=== PATIENT | male | born 1940 | race Caucasian/White ===

== ENCOUNTER 2019-02-10 14:23 | Inpatient (IN) | payer MEDICARE ==
[~2019-02-10] VITALS: Ht 177.8 cm; Wt 90.3 kg
[2019-02-10] MEDS ORDERED: ATEN50TA PO (16:10)
[2019-02-10] MEDS ORDERED: CLOP75TA69 PO (16:10)
[2019-02-10] MEDS ORDERED: LORA10TA7 PO (16:10)
[2019-02-10] MEDS ORDERED: VITA1TAB17 PO (16:10)
[2019-02-10] MEDS ORDERED: MAGN400T29 PO (16:10)
[2019-02-10] MEDS ORDERED: WARF-48 PO (16:10)
[2019-02-10] MEDS ORDERED: DOCU-143 PO (16:10)
[2019-02-10] MEDS ORDERED: OXYC-529 PO (16:10)
[2019-02-10] MEDS ORDERED: METF-397 PO (16:10)
[2019-02-10] MEDS ORDERED: LIDO1ADH41 TP (16:10)
[2019-02-10] MEDS ORDERED: METH2.5T PO (16:10)
[2019-02-10] MEDS ORDERED: METH-313 PO (16:10)
[2019-02-10] MEDS ORDERED: NF-LT10/20 PO (16:10)
[2019-02-10] MEDS ORDERED: CHOL10007 PO (16:10)
[2019-02-10] MEDS ORDERED: LEVO25TA5 PO (16:10)
[2019-02-10] MEDS ORDERED: MULT1TAB69 PO (16:10)
[2019-02-10] MEDS ORDERED: ASPI325T32 PO (16:10)
[2019-02-10] MEDS ORDERED: SENN-40 PO (16:10)
[2019-02-10] MEDS ORDERED: DIPH25TA65 PO (16:10)
[2019-02-10] MEDS ORDERED: ALLO300T2 PO (16:10)
[2019-02-10] MEDS ORDERED: ACET-2267 PO (16:10)
[2019-02-10] MEDS ORDERED: SIMV20TA3 PO (16:10)
[2019-02-10] MEDS ORDERED: HEPA500016 SC (16:10)
[2019-02-10] MEDS ORDERED: CALCIUM CARBONATE 500 MG (TUMS) TAB.CHEW PO PRN (16:15)
[2019-02-10] MEDS ORDERED: LOPERAMIDE 2 MG (IMODIUM) CAP PO PRN (16:15)
[2019-02-10] MEDS ORDERED: MELATONIN 3 MG TABLET PO PRN (16:15)
[2019-02-10] MEDS ORDERED: DOCUSATE SODIUM 100 MG (COLACE) CAP PO PRN (16:15)
[2019-02-10] MEDS ORDERED: diphenhydrAMINE 25 MG TAB (BENADRYL) PO PRN (16:15)
[2019-02-10] MEDS ORDERED: ACETAMINOPHEN 500 MG TAB (TYLENOL) PO PRN ×2 (16:15→19:15)
[2019-02-10] MEDS ORDERED: HYDROcodone/APAP 5 MG/325 MG (LORTAB) TAB PO PRN (16:15)
[2019-02-10] MEDS ORDERED: ONDANSETRON 4 MG (ZOFRAN) ORAL DISSOLVE TAB PO PRN (16:15)
--- NOTE | 2019-02-10 16:17 | NUR ---
UPDATED MED REC WITH LIST OF MEDICATIONS ORDERED AT DISCHARGE FROM . NOTE THE FOLLOWING CHANGES WERE MADE AT THAT DISCHARGE: START TAKING: ASPIRIN 325MG DAILY PLAVIX 75MG DAILY COLACE 100MG BID HEPARIN 5000UNITS/0.5ML SYRINGE 0.5ML SUBQ Q8H LIDODERM 5% PATCH APPLY 1 TO 2 PATCHES DAILY FOR 12 HOURS THEN REMOVE FOR 12 HOURS METHOCARBAMOL 750MG TID PRN OXYCODONE 5MG Q4H PRN SENOKOT S BID CONTINUE THESE MEDICATIONS WHICH HAVE BEEN CHANGED OR REFILLED: LOTREL 10-20MG HS (HOLD UNTIL CLEARED TO RESUME BY DR. WOODWARD) ATENOLOL 50MG DAILY (HOLD UNTIL CLEARED TO RESUME BY DR. WOODWARD) WARFARIN 5MG DAILY (HOLD THIS MEDICATION WHILE ON CLOPIDOGREL (PLAVIX)) THE FOLLOWING WERE REMOVED, INCLUDES THOSE DISCONTINUED THIS STAY + THOSE REMOVED FROM YOUR PRIOR MED LIST IN THE SYSTEM: LOVENOX AT A LATER TIME I WILL UPDATE THE MED REC BACK TO THE LIST OF MEDICATIONS THE PATIENT WAS TAKING PRIOR TO THE DISCHARGE FROM FOR PROPER DISCHARGE TO HOME ORDERS. Addendum: 02/11/19 at 1219 by LORE LUCAS [facility] SET THE PROFILE BACK TO THE LIST OF MEDICATIONS THE PATIENT WAS TAKING PRIOR TO ADMISSION TO . I REMOVED THE 8 NEW MEDICATIONS: ASPIRIN PLAVIX COLACE HEPARIN LIDODERM ROBAXIN OXYCODONE SENOKOT S NO DOSE OR DIRECTION CHANGES APPEAR TO HAVE BEEN MADE THE THE LOTREL, ATENOLOL, OR COUMADIN THERE WAS JUST A NOTE ADDED TO EACH. THEY REMOVED THE LOVENOX FROM HIS LIST ON DISCHARGE FROM [facility] BUT THAT LOOKS LIKE A SHORT TERM MEDICATION THAT WAS FILLED #5 FOR A 4 DAY SUPPLY 01-07-19, I DID NOT ADD IT BACK TO THE MED REC AT THIS TIME.
--- NOTE | 2019-02-10 18:45 | NUR ---
JOSE BELL admitted to room 233-1, with an admitting diagnosis of CERVICAL STENOSIS OF THE SPINE, on 02/10/19 from [facility] via PRIVATE VEHICLE, accompanied by FAMILY. JOSE BELL introduced to surroundings, call light, bed controls, phone, TV, temperature control, lights, meal times, smoking policy, visitor policy, side rail policy, bathrooms and showers. Patient Rights given to patient in the handbook. JOSE BELL verbalizes understanding that [facility] is not responsible for the loss or damage to any personal effects or valuables that are kept in the patient's possession during their hospitalization. The following Patient Care Plans were discussed with the PATIENT: Discharge Planning, ALTERED CEREBRAL TISSUE PERFUSION, IMPAIRED MOBILITY, SELF CARE DEFICIT, and KNOWLEDGE DEFICIT. JOSE BELL verbalizes understanding of Interdisciplinary Patient Education. Patient and family were informed about the Rapid Response Team and its purpose. Patient received Patient Rights Booklet, which includes Privacy Act Statement and Data Collection Information Summary.
[2019-02-10 19:11] VITALS: BP 175/80
[2019-02-10] MEDS ORDERED: METHOCARBAMOL 750 MG (ROBAXIN) TAB PO PRN (19:15)
[2019-02-10] MEDS ORDERED: NON-FORMULARY MEDICATION 1 EA EA (Vitamin B Complex 1 TAB) PO SCH (21:00)
[2019-02-10] MEDS ORDERED: SENNA W/DOCUSATE (SENOKOT S) TABLET PO SCH (21:00)
[2019-02-10] MEDS: DOCUSATE SODIUM 100 MG (COLACE) CAP PO SCH (21:20)
[2019-02-10] MEDS: MAGNESIUM OXIDE (MAG-OX)400 MG TAB PO SCH (21:20)
[2019-02-10] MEDS: SENNA W/DOCUSATE (SENOKOT S) TABLET PO SCH (21:21)
[2019-02-10] MEDS: VITAMIN D3 1,000 UNITS (CHOLECALCIFEROL) TABLET PO SCH (21:21)
[2019-02-10] MEDS: diphenhydrAMINE 25 MG TAB (BENADRYL) PO SCH (21:21)
[2019-02-10] MEDS: MULTIVIT W/MINERALS TAB (THERAGRAN M) PO SCH (21:21)
[2019-02-10] MEDS: lisINopril 20 MG (PRINIVIL) TABLET PO SCH (21:24)
[2019-02-10] MEDS: PATCH REMOVAL TP SCH (21:55)
[2019-02-11 03:46] VITALS: BP 180/84
[2019-02-11 06:16] LABS: BASOPHILS % (AUTO) 0 % (0-10); EOSINOPHILS # (AUTO) 0.2 10^3/uL (0.0-0.3); EOSINOPHILS % (AUTO) 3 % (0-10); HEMATOCRIT 36 % (40-54); HEMOGLOBIN 11.6 G/DL (13.3-17.7); LYMPHOCYTES # (AUTO) 1.1 X 10^3 (1.0-4.0); LYMPHOCYTES % (AUTO) 16 % (12-44); MEAN CORPUSCULAR HEMOGLOBIN 30 PG (25-34); MEAN CORPUSCULAR HGB CONC 32 G/DL (32-36); MEAN CORPUSCULAR VOLUME 93 FL (80-99); MEAN PLATELET VOLUME 9.6 FL (7.4-10.4); MONOCYTES # (AUTO) 0.6 X 10^3 (0.0-1.0); MONOCYTES % (AUTO) 9 % (0-12); NEUTROPHILS % (AUTO) 72 % (42-75); PLATELET COUNT 212 10^3/uL (130-400); RED CELL DISTRIBUTION WIDTH 13.9 % (10.0-14.5); WHITE BLOOD COUNT 6.9 10^3/uL (4.3-11.0)
[2019-02-11 06:38] LABS: PROTHROMBIN TIME PATIENT 13.5 SEC (12.2-14.7)
[2019-02-11 06:47] LABS: ALANINE AMINOTRANSFERASE 15 U/L (0-55); ALBUMIN 3.6 GM/DL (3.2-4.5); ALKALINE PHOSPHATASE 76 U/L (40-136); BILIRUBIN,TOTAL 0.4 MG/DL (0.1-1.0); BUN/CREATININE RATIO 14; CALCIUM 9.6 MG/DL (8.5-10.1); CARBON DIOXIDE 25 MMOL/L (21-32); CHLORIDE 104 MMOL/L (98-107); CREATININE SERUM 0.99 MG/DL (0.60-1.30); GFR ESTIMATED > 60; GLUCOSE 155 MG/DL (70-105); SODIUM 140 MMOL/L (135-145)
[2019-02-11] MEDS: metFORMIN 500 MG (GLUCOPHAGE) TAB PO SCH ×2 (06:53→17:08)
[2019-02-11] MEDS ORDERED: NON-FORMULARY MEDICATION 1 EA EA (Metformin HCl 500 MG) PO SCH (07:00)
[2019-02-11] MEDS ORDERED: ALLOPURINOL 300 MG (ZYLOPRIM) TAB PO PRN (09:00)
--- NOTE | 2019-02-11 09:54 | Physical Therapy Evaluation ---
PT Evaluation-General Medical Diagnosis Admission Date Feb 10, 2019 at 18:32 Medical Diagnosis: cervical fusion Onset Date: January 29, 2019 Therapy Diagnosis Therapy Diagnosis: impaired mobility, endurance, balance Height/Weight Height (Feet): 5 Height (Inches): 10.00 Weight (Pounds): 200 Weight (Ounces): 6.4 Precautions Precautions/Isolations: Fall Prevention, Standard Precautions Referral Physician: Jayleen Santos DO Reason for Referral: Evaluation/Treatment Medical History Pertinent Medical History: Arthritis, CVA, DM, Dementia, HTN Additional Medical History Hard of hearing. R total hip. Bilat total knees. Bilat cataract surgery. Hx DVT. DAYANNA on CPAP. Basal cell CA. Social History Home: Single Level Current Living Status: Spouse Entry Into Home: Stairs With Railing PT Steps Into Home: 3 Patient states that he usually enters the home from the garage which has a level entry. Prior/Core FIM Prior Level of Function Therapy Code Descriptions/Definitions Functional Placer Measure: 0=Not Assessed/NA 4=Minimal Assistance 1=Total Assistance 5=Supervision or Setup 2=Maximal Assistance 6=Modified Placer 3=Moderate Assistance 7=Complete Placer Therapy Quality Codes: 6 Independent with activity with or without an assistive device 5 Patient requires set up or clean up by helper. Patient completes activity by themselves 4 Supervision or touching assist (CGA). [place] provide cues , steadying assist 3 The helper provides less than half the effort to complete the activity 2 The helper provides more than half the effort to complete the activity 1 Dependent. The helper does all the effort to complete an activity 7 Patient refused to complete or attempt activity 9 The patient did not perform the activity before the current illness or injury 88 Not attempted due to Medical conditions or safety concerns Functional Abilities and Goals: Independent: Patient completed the activities by him/herself, with or without an assistive device, with no assistance from a helper. Needed Some Help: Patient needed partial assistance from another person to complete activities. Dependent: A helper completed the activities for the patient. Unknown: Not Applicable: Bed Mobility: 7 Transfers (B,C,W/C) (FIM): 7 Gait: 7 Stairs: 7 Indoor Mobility (Ambulation): Independent Stairs: Independent PT Evaluation-Current Subjective Patient in recliner pre tx, agrees to PT, has 1-2/10 pain in his neck. Patient has word finding difficulties. Pt/Family Goals to be independent at home Objective Patient Orientation: Person, Place, Situation cervical collar ROM/Strength ROM Lower Extremities WNL Strenght Lower Extremities RLE (hip flexion 4+/5, knee flexion 5/5, knee extension 5/5, dorsiflexion 5/5), LLE (hip flexion 4+/5, knee flexion 5/5, knee extension 5/5, dorsiflexion 5/5) Neuromuscular (Tone, Coordination, Reflexes) Patient states that he has had some recent visual changes. He seems to have good peripheral vision but has trouble tracking below eye level and to the right side. Sensory Vision: Hearing: Impaired Sensation Right Lower Extremit: Intact Sensation Left Lower Extremity: Intact Transfers Therapy Code Descriptions/Definitions Functional Placer Measure: 0=Not Assessed/NA 4=Minimal Assistance 1=Total Assistance 5=Supervision or Setup 2=Maximal Assistance 6=Modified Placer 3=Moderate Assistance 7=Complete Placer Therapy Quality Codes: 6 Independent with activity with or without an assistive device 5 Patient requires set up or clean up by helper. Patient completes activity by themselves 4 Supervision or touching assist (CGA). [place] provide cues , steadying assist 3 The helper provides less than half the effort to complete the activity 2 The helper provides more than half the effort to complete the activity 1 Dependent. The helper does all the effort to complete an activity 7 Patient refused to complete or attempt activity 9 The patient did not perform the activity before the current illness or injury 88 Not attempted due to Medical conditions or safety concerns Transfers (B, C, W/C) (FIM): 5 Scootin Rollin Roll Left to Right (QC): 4 Supine to/from Sit: 5 Sit to/from Stand: 5 Sit to Lying (QC): 4 Lying to Sitting/Side of Bed(Q: 4 Sit to Stand (QC): 4 Chair/Zpd-wy-Effmy Xfer(QC): 4 Car Transfer (QC): 4 Patient performs bed mobility with SBA, supine <-> sit with SBA, sit <-> stand with SBA, transfers with SBA, car transfer SBA. Patient needs occasional cues for direction and safety. Gait Does the Patient Walk?: Yes Mode of Locomotion: Walk Anticipated Mode of Locomotion: Walk Gait (FIM): 5 Walk 10 feet (QC): 4 Walk 50 ft with 2 Turns(QC): 4 Walk 150 ft (QC): 4 Walking 10ft/uneven surface-QC: 4 Distance: 400', 150' Gait Level of Assist: 5 Gait Persons Needed: 1 Gait Assistive Device: None Comments/Gait Description Patient can ambulate 400' with SBA without an assistive device (including 50' with at least 2 turns of 90 degrees but needs CGA when ambulating 10' over an uneven surface). Patient has a limp and poor foot clearance on the right side, poor heel strike. Patient scored 46/56 on the Nixon Balance Scale and it was recommended that he use a single point cane. He says he doesn't want to use it. Wheelchair Training Does the Pt Use a Wheelchair?: No Stairs Stairs (FIM): 2 #of Steps: 4 Level of Assist: 4 1 Step (curb) (QC): 4 4 Steps (QC): 4 Patient can go up and down 4 steps using 1 handrail with CGA. Cues for foot placement and safety. Balance Sitting Static: Normal Sitting Dynamic: Normal Standing Static: Good Standing Dynamic: Fair Picking up an Object (QC): 4 Assessment/Needs Patient has impaired mobility, endurance, balance. He scored a 46/56 on the BBS. Ideally he needs to use a cane for ambulation but says he doesn't want to use one. Rehab Potential: Fair PT Short Term Goals Short Term Goals Time Frame: Feb 18, 2019 Transfers (B,C,W/C) (FIM): 6 Gait (FIM): 6 Gait Distance Comment: 500' Gait Level of Assist: 6 Gait Assistive Device: Cane Single Point Wheelchair Distance: SEE PT GOALS PT Pollution Control Chemist Goals Pollution Control Chemist Goals PT Group Home Goals Time Frame: Mar 04, 2019 Transfers (B,C,W/C) (FIM): 7 Sit to Lying (QC): 6 Lying-Sitting on Side/Bed(QC): 6 Sit to Stand (QC): 6 Rollin Roll Left to Right (QC): 6 Chair/Jre-fq-Mcizz Xfer(QC): 6 Car Transfer (QC): 6 Gait (FIM): 7 Distance: 500' Walk 10 feet (QC): 6 Walk 10ft-Uneven Surface(QC): 6 Walk 50ft with 2 Turns (QC): 6 Walk 150 ft (QC): 6 Gait Level of Assist: 7 Gait Assistive Device: None Stairs (FIM): 5 # of Steps: 12 1 Step (curb) (QC): 4 4 Steps (QC): 4 12 Steps (QC): 4 Stairs Level Of Assist: 5 PT Plan Problem List Problem List: Activity Tolerance, Functional Strength, Safety, Balance, Gait, Transfer Treatment/Plan Treatment Plan: Continue Plan of Care Treatment Plan: Education, Functional Activity Robert, Functional Strength, Group Therapy, Gait, Safety, Therapeutic Exercise, Transfers Treatment Duration: Mar 04, 2019 Frequency: At least 5 of 7 days/Wk (IRF) Estimated Hrs Per Day: 1.5 hours per day Patient and/or Family Agrees t: Yes Safety Risks/Education Patient Education: Gait Training, Transfer Techniques, Steps, Reviewed Precautions, Correct Positioning, Safety Issues Teaching Recipient: Patient Teaching Methods: Demonstration, Discussion Response to Teaching: Reinforcement Needed Discharge Recommendations Plan Patient will perform bed mobility and transfer training, balance and endurance training, functional strengthening, stair training, gait training, and education, to improve functional mobility and independence at home. Therapy D/C Recommendations: Home w/ Family Support Time/GCodes Time In: 0900 Time Out: 1000 Total Billed Treatment Time: 60 Total Billed Treatment 1 visit EVM 30' FA 30' ALEX RODRIGUEZ PT Feb 11, 2019 09:54
[2019-02-11] MEDS: ATENOLOL 50 MG (TENORMIN) TAB PO SCH (09:55)
[2019-02-11] MEDS: ASPIRIN E.C. 325 MG (ECOTRIN) TABLET PO SCH (09:55)
[2019-02-11] MEDS: LEVOTHYROXINE 25 MCG (LEVOTHROID) TAB PO SCH (09:55)
[2019-02-11] MEDS: LORATADINE (CLARITIN) 10 MG TAB PO SCH (09:55)
[2019-02-11] MEDS: CLOPIDOGREL 75 MG (PLAVIX) TABLET PO SCH (09:55)
[2019-02-11] MEDS: SIMvastatin 20 MG (ZOCOR) TAB PO SCH (09:55)
[2019-02-11] MEDS: warFARin 5 MG (COUMADIN) TAB PO SCH (09:56)
[2019-02-11] MEDS: SENNA W/DOCUSATE (SENOKOT S) TABLET PO SCH ×2 (09:57→21:00)
[2019-02-11] MEDS: DOCUSATE SODIUM 100 MG (COLACE) CAP PO SCH ×2 (09:57→21:00)
[2019-02-11] MEDS: LIDOCAINE 4% (SALONPAS) PATCH TOP SCH (09:57)
--- NOTE | 2019-02-11 11:00 | PM&R H&P / Post Admit Assess ---
History of Present Illness HPI/Chief Complaint CC: Debility following CVA post op cervical spine surgery HPI: This is a 78yoWM clinic patient of Dr Marino after recently establishing his care after his doctor retired who presents to the IRF in need of recovery follow ing a CVA on 01/31/19 due to carotid artery occlusion following an uncomplicated cervical spine surgery 01/29/19 with right sided weakness, aphasia and right facial droop requiring CTA revealing left ICA near complete occlusion so carotid stent was placed 02/08/19. He has a h/o CVA in 1993 with right sided weakness since that time. He is currently much improved but impulsive and has minimal knowledge of his medical history so I gather most information from old records and will obtain some records from Dr Marino office. Currently he reports his bowels are moving well and he is urinating well. Fall risk noted so bed and chair alarm is placed. PLOF was independent but limited upper extremities due to cervical spine stenosis prior to the surgery. Source: patient Exam Limitations: no limitations Date Seen 02/11/19 Time Seen by a Provider: 08:30 Attending Physician Jayleen Santos DO PCP Raghavendra Marino DO Referring Physician Date of Admission Feb 10, 2019 at 18:32 Home Medications & Allergies Home Medications Reviewed patient Home Medication Reconciliation performed by pharmacy medication reconciliations air traffic systems technician and/or nursing. Patients Allergies have been reviewed. Allergies Allergies Coded Allergies tramadol (Verified Adverse Reaction, Unknown, Possible delirium, 02/10/19) Past Mqfecdh-Ijowks-Mdvkxb Hx Past Med/Social Hx: Reviewed Nursing Past Med/Soc Hx, Reviewed and Corrections made Patient Social History Marrital Status: Employed/Student: retired (banker) Alcohol Use: Regular Use Number of Drinks Today: 5 Alcohol Beverage of Choice: Beer Recreational Drug Use: No Smoking Status: Never a Smoker Physical Abuse Screen: No Sexual Abuse: No Recent Foreign Travel: No Contact w/other who traveled: No Recent Hopitalizations: Yes Recent Infectious Disease Expo: No Seasonal Allergies Seasonal Allergies: No Past Medical History Surgeries: Orthopedic Respiratory: Sleep Apnea Currently Using CPAP: Yes Currently Using BIPAP: No Cardiac: High Cholesterol, Hypertension, Peripheral Vascular Neurological: Stroke (01/31/19 right sided) Sexually Transmitted Disease: No HIV/AIDS: No Gastrointestinal: Gastroesophageal Reflux Musculoskeletal: Arthritis, Chronic Back Pain Are Your Blood Sugars Over 250: No Hearing Impairment: Bilateral Hearing Aide Skin/Integumentary: Psoriasis History of Blood Disorders: No Adverse Reaction to Blood Prince: No Family History Completed stroke 19 MOTHER Hypertension Review of Systems Constitutional: see HPI, dizziness, weakness EENTM: no symptoms reported Respiratory: no symptoms reported Cardiovascular: no symptoms reported Gastrointestinal: no symptoms reported Genitourinary: no symptoms reported Musculoskeletal: back pain, joint pain, muscle pain, muscle stiffness, muscle cramps, muscle twitching, muscle weakness, neck pain Skin: other (psoriasis) Psychiatric/Neurological: Depressed, Numbness, Paresthesia, Weakness All Other Systems Reviewed Negative Unless Noted: Yes Physical Exam Exam Vital Signs Vital Signs Date Time Temp Pulse Resp B/P (MAP) Pulse Ox O2 Delivery O2 Flow Rate FiO2 02/11/19 16:40 96.7 71 16 158/84 (108) 98 Room Air 02/11/19 07:58 2.00 Capillary Refill : General Appearance: No Apparent Distress, WD/WN, Chronically ill HEENT: PERRL/EOMI, Normal ENT Inspection, Pharynx Normal, Moist Mucous Membranes Neck: Full Range of Motion, Normal Inspection, Non Tender, Supple Respiratory: Chest Non Tender, Lungs Clear, Normal Breath Sounds, No Accessory Muscle Use, No Respiratory Distress Cardiovascular: Regular Rate, Rhythm, No Edema, No Gallop, No JVD, No Murmur Gastrointestinal: Normal Bowel Sounds, No Organomegaly, No Pulsatile Mass, Non Tender, Soft Back: Normal Inspection, No CVA Tenderness, No Vertebral Tenderness, Decreased Range of Motion (neck due to brace in place) Extremity: Normal Capillary Refill, Normal Inspection, Normal Range of Motion, Non Tender, No Calf Tenderness, No Pedal Edema Neurologic/Psychiatric: Alert, Oriented x3, Normal Mood/Affect, Aphasia (subtle exp aphasia), Disoriented (subtle deficit noted), Facial Droop (right), Motor Weakness (right arm, right leg 4/5) Skin: Normal Color, Warm/Dry Lymphatic: No Adenopathy Results Results/Procedures Labs Laboratory Tests 02/11/19 06:00 02/11/19 06:06 Patient resulted labs reviewed. Assessment/Plan Assessment and Plan Assess & Plan/Chief Complaint Assessment: Debility following post op CVA due to right carotid stenosis 01/31/19 s/p stent placement 02/08/19 h/o DVT's x 2 2012 and 2014 following surgery DAYANNA on CPAP Dementia Cervical spine stenosis s/p surgery HTN DM HLP Hypothyroidism Coumadin OAC Plan: Monitor labs Pain control IRF protocols Monitor closely (1) Cerebrovascular accident (CVA) due to stenosis of carotid artery (2) DAYANNA (obstructive sleep apnea) (3) Carotid stenosis, right (4) History of right common carotid artery stent placement (5) Acquired hypercoagulable state (6) Psoriasis (7) Hyperlipidemia (8) Dementia (9) Cervical stenosis of spine (10) Basal cell carcinoma (BCC) (11) Diabetes mellitus (12) Presbycusis of both ears (13) GERD (gastroesophageal reflux disease) (14) History of DVT of lower extremity (15) Gout (16) Hypertension (17) Vitamin B12 deficiency (18) Hypothyroidism (19) Immunosuppressed status (20) Warfarin anticoagulation Post Admission Physician Asses Date seen by provider: Feb 11, 2019 Time seen by provider: 08:30 Admisison Dx: (1) Cerebrovascular accident (CVA) due to stenosis of carotid artery The preadmission screen agrees with the post admission assessment that the patient is a good candidate for inpatient rehabilitation. The patient will have a comprehensive program of inpatient rehabilitation with a goal of maximizing level of functional independence prior to discharge home with family. The patient will have PT/OT ninety minutes per day, each discipline, five days a week for gait, strengthening, conditioning, balance, ADLs, any patient/family/caregiver training as necessary. Speech therapy to do cognitive assessment and treat as indicated. Rehabilitation nursing to assist with bowel, bladder, skin, wound care, medication administration, pain management. Floor Clerk to assist with discharge planning, community reentry. SCD's for DVT prophylaxis. He appears to be well motivated to participate in three hours of therapy a day. He should be able to tolerate three hours of therapy a day from a medical standpoint. He should benefit from the three hours of therapy a day. He has a reasonable discharge plan, reasonable discharge rehabilitation goals and a supportive family. He has various comorbidities that need to be closely monitored with medications and treatments adjusted on a daily basis as needed. These include: see list Barriers to discharge for this patient who had been independent prior to this are for him to be modified independent to supervision for ADLs and mobility skil ls prior to discharge home with family, so as to lessen the burden of the caregivers. Risks for this patient include: 1. Fall 2. Fracture 3. DVT 4. Pulmonary embolism 5. Wound infection 6. Skin breakdown 7. Contractures 8. Poorly controlled pain 9. Urinary retention 10. UTI 11. Respiratory infection 12. Aspiration Estimated Length of Stay: 10 days Prognosis: Rehab prognosis appears good for goal of discharge home with family modified independent to supervision for ADLs and mobility skills. JAYLEEN SANTOS DO Feb 11, 2019 11:00
--- NOTE | 2019-02-11 11:05 | ST Cognitive Linguistic Eval ---
Speech Evaluation-General Medical Diagnosis cervical fusion Onset Date: January 29, 2019 Therapy Diagnosis Therapy Diagnosis: Cognitive-communication Precautions Precautions/Isolations: Fall Prevention, Standard Precautions Referral Referring Physician: Dr. Santos Medical History Reviewed History: Yes Social History Current Living Status: Spouse Speech PLF-Current Status Prior Level of Function Patient lives at home with his . He was independent for most of his daily needs prior to his neck injury in 2017 Subjective The patient was pleasant and attentive during the evaluation process. He was noted to have difficulty with word finding. Language Eval: Auditory Comprehends Simple Yes/No Ques: Functional Indent/Objects Multiple [place]: Functional Ident/Pics in Multiple [place]: Functional Follows 1-Step Commands: Functional Follows Complex Directions: Mild Follows General Conversations: Functional Language Eval: Verbal Language Completes Spontaneous Greeting: Functional Imitates Simple Words/Phrases: Functional Word Finding: Moderate Requests Basic Needs: Mild States Basic Personal Info: Mild Expresses Complex Ideas: Moderate Objective Cognitive Domain Attention: WNL Problem Solving: Mild Visuospatial Skills: WNL Composite Severity Rating: Mild Clock Drawing Severity Rating: Mild Objective Formal/Standardized Tests [facility] Status ([facility]) Results Patient scored 23/30 which falls in the Mild Neurocognitive Disorder (MNCD) range of function. Oral Motor/Speech Production Within Functional Limits Impression The patient is a pleasant 78 year old man who was admitted to the ARU s/p cervical fusion, CVA post surgery. The patient was given the SLUMS with results placing him in the MNCD range of function. Deficits include but are not limited to memory, problem solving and word finding. Communication/Social Cognition Comprehension: 7 Expression: 5 Social Interaction: 7 Problem Solvin Memory: 5 Speech Patient Assess Expression of Ideas/Wants: Exhibits (3) Understanding Verbal Content: Understands (4) Brief Interview-Mental Status: Yes Repetition of Three Words: Three (3) Temporal Orientation: Year: Correct (3) Temporal Orientation: Month: Accurate within 5 days(2) Recall : Wear to say "Sock": Yes,after cueing (1) Recall : Color: Yes, no cue required (2) Recall : Bed: Yes,after cueing (1) Memory/Recall Ability: Current season, That he or she is in a hsp/hsp unit Speech Short Term Goals Short Term Goals Short Term Goals 1) The patient will complete memory tasks related to his daily needs at 90% or greater given minimal verbal cues. 2) The patient will complete problem solving tasks related to his daily needs at 90% or greater given minimal verbal cues. 3) The patient will complete word finding tasks related to his daily needs at 90% or greater given minimal verbal cues. Speech Intermediate Goals Sleep Tech Goals The patient will improve his cognitive skills for safety and independence in order to return home safely. Speech-Plan Patient/Family Goals Patient/Family Goals: The patient plans on returning to his home with his post rehab. Treatment Plan Speech Therapy Treatment Plan: Continue Plan of Care The patient will receive skilled ST services with focus on improving his cognitive function. Treatment Duration: Feb 26, 2019 Frequency: 5 times per week Estimated Hrs Per Day: .5 hour per day Rehab Potential: Fair Barriers to Learning: Patient has residual effects from a previous stroke 25 years ago. Patient had another stroke s/p cervical fusion surgery. Pt/Family Agrees to Plan: Yes Safety Risks/Education Teaching Recipient: Patient, Family Teaching Methods: Discussion Response to Teaching: Verbalize Understanding Education Topics Provided: Safety within his room and utilization of the call light as needed. Time Speech Therapy Time In: 10:15 Speech Therapy Time Out: 10:40 Total Billed Time: 25 Billed Treatment Time 1, SPSNDCOMP MAYANK Curtis Feb 11, 2019 11:05
--- NOTE | 2019-02-11 14:38 | Physical Therapy Daily Note ---
PT Daily Note-Current Subjective Pt reports he does not using the cane but is agreeable to try using it this session. Agreeable to PT session. Pt denies pain at this time Pain Numeric Pain Scale: 0-No Pain Appearance Pt sitting up in chair in room with daughter present at beginning of session. At end of session pt sitting up in chair with daughter present, call light, phone and bedside table within reach Mental Status Patient Orientation: Person, Place, Time, Eyes Open neck brace Transfers Therapy Code Descriptions/Definitions Functional [place] Measure: 0=Not Assessed/NA 4=Minimal Assistance 1=Total Assistance 5=Supervision or Setup 2=Maximal Assistance 6=Modified [place] 3=Moderate Assistance 7=Complete [place] Therapy Quality Codes: 6 Independent with activity with or without an assistive device 5 Patient requires set up or clean up by helper. Patient completes activity by themselves 4 Supervision or touching assist (CGA). [place] provide cues , steadying assist 3 The helper provides less than half the effort to complete the activity 2 The helper provides more than half the effort to complete the activity 1 Dependent. The helper does all the effort to complete an activity 7 Patient refused to complete or attempt activity 9 The patient did not perform the activity before the current illness or injury 88 Not attempted due to Medical conditions or safety concerns Transfers (B, C, W/C) (FIM): 4 Sit to/from Stand: 4 (CGA provided) Pt able to follow instruction for correct placement of hands during transitions Gait Training Does the Patient Walk?: Yes Gait (FIM): 4 Distance (FIM): 3=150 ft Distance: 800, 200 Gait Level of Assist: 4 (CGA provided for safety, slight unsteadiness, leobardo outside amb on uneven surfaces. No LOB) Gait Persons Needed: 1 Gait Assistive Device: Cane Single Point indoor and outdoor gait training performed with SPC and CGA with gait belt. Unsteadiness at times self corrected, No LOB. Outdoors amb on concrete, down ramp, up 3 stairs, across wood bridge, several turns. Verb instruction and education on correct and safe use of cane, pt requiring re instruction cane with opposite foot forward on each step. occasional running into furniture with cane Stair Training Stair Training: Handrails/: uses cane Stairs (FIM): 4 (CGA and verb inst) #of Steps: 3 Stairs: Pattern: Reciprocal foot only 1/2 way on step causing unsteadiness Treatments transfer, safety, gait, ramp, stairs, uneven surfaces, turns, activity tolerance, functional mobility, education in correct use and technique with cane Assessment Current Status: Good Progress PT Short Term Goals Short Term Goals Time Frame: Feb 18, 2019 Transfers (B,C,W/C) (FIM): 6 Gait (FIM): 6 Gait Distance Comment: 500' Gait Level of Assist: 6 Gait Assistive Device: Cane Single Point Wheelchair Distance: SEE PT GOALS PT [facility] Goals Occupational Health Nursing Director Goals PT [facility] Goals Time Frame: Mar 04, 2019 Transfers (B,C,W/C) (FIM): 7 Sit to Lying (QC): 6 Lying-Sitting on Side/Bed(QC): 6 Sit to Stand (QC): 6 Rollin Roll Left to Right (QC): 6 Chair/Zti-uy-Oobno Xfer(QC): 6 Car Transfer (QC): 6 Gait (FIM): 7 Distance: 500' Walk 10 feet (QC): 6 Walk 10ft-Uneven Surface(QC): 6 Walk 50ft with 2 Turns (QC): 6 Walk 150 ft (QC): 6 Gait Level of Assist: 7 Gait Assistive Device: None Stairs (FIM): 5 # of Steps: 12 1 Step (curb) (QC): 4 4 Steps (QC): 4 12 Steps (QC): 4 Stairs Level Of Assist: 5 PT Plan Treatment/Plan Treatment Plan: Continue Plan of Care Treatment Plan: Education, Functional Activity Robert, Functional Strength, Group Therapy, Gait, Safety, Therapeutic Exercise, Transfers Treatment Duration: Mar 04, 2019 Frequency: At least 5 of 7 days/Wk (IRF) Estimated Hrs Per Day: 1.5 hours per day Patient and/or Family Agrees t: Yes Safety Risks/Education Patient Education: Gait Training, Transfer Techniques, Steps, Safety Issues Teaching Recipient: Patient, Family Teaching Methods: Demonstration, Discussion Response to Teaching: Verbalize Understanding, Return Demonstration, Reinf orcement Needed Time/GCodes Time In: 1115 Time Out: 1133 Total Billed Treatment Time: 18 Total Billed Treatment 1 visit, GT x 2 units PERLA RAINES RESOLUTION MANAGER Feb 11, 2019 14:38
--- NOTE | 2019-02-11 14:51 | Occupational Therapy Eval ---
OT Evaluation-General/PLF Medical Diagnosis Admission Date Feb 10, 2019 at 18:32 Medical Diagnosis: cervical fusion Onset Date: January 29, 2019 Therapy Diagnosis Therapy Diagnosis: decr self care, decr balance, decr funct mob, weakness, decr cognition Height/Weight Height (Feet): 5 Height (Inches): 10.00 Weight (Pounds): 200 Weight (Ounces): 6.4 Precautions Precautions/Isolations: Fall Prevention, Standard Precautions Safety Interventions: Move Closer to Desk Referral Physician: Jayleen Santos DO Referral Reason: Evaluation/Treatment Medical History Pertinent Medical History: Arthritis (psoriatric), CVA (in 1991), DM, Dementia, HTN Additional Medical History Hard of hearing. R total hip. Bilat total knees. Bilat cataract surgery. Hx DVT. DAYANNA on CPAP. Basal cell CA. 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 Has bilat carotid stenosis, dx 02/03 and R carotid stent 02/08. Reviewed History: Yes Social History Home: Single Level Current Living Status: Spouse Entry Into Home: Stairs With Railing Steps Into Home: 3 ADL-Prior Level of Function Therapy Code Descriptions/Definitions Functional [place] Measure: 0=Not Assessed/NA 4=Minimal Assistance 1=Total Assistance 5=Supervision or Setup 2=Maximal Assistance 6=Modified [place] 3=Moderate Assistance 7=Complete [place] Therapy Quality Codes: 6 Independent with activity with or without an assistive device 5 Patient requires set up or clean up by helper. Patient completes activity by themselves 4 Supervision or touching assist (CGA). [place] provide cues , steadying assist 3 The helper provides less than half the effort to complete the activity 2 The helper provides more than half the effort to complete the activity 1 Dependent. The helper does all the effort to complete an activity 7 Patient refused to complete or attempt activity 9 The patient did not perform the activity before the current illness or injury 88 Not attempted due to Medical conditions or safety concerns Functional Abilities and Goals: Independent: Patient completed the activities by him/herself, with or without an assistive device, with no assistance from a helper. Needed Some Help: Patient needed partial assistance from another person to complete activities. Dependent: A helper completed the activities for the patient. Unknown: Not Applicable: ADL PLOF Comments Pt reported that he had been able to manage all of his basic ADLs, tasks around home including emptying head resident, taking out the trash and mowing using a riding mower, prior to hospitalization.He still drives. He is retired from working as a banker. Self Care: Independent Functional Cognition: Unknown DME/Equipment: Shower OT Current Status Subjective Pt seen in room, up in recliner, cervical collar in place. Pain rated 1-1.5/10 Appearance Alert, cooperative. Some word finding problems Mental Status/Objective Patient Orientation: Person, Place, Situation Current Glasses/Contacts: Yes Hearing Aids: Yes (pt reported no, med records reports yes) Dentures/Partials: No Hand Dominance: Left (Initially R handed but now uses L since old CVA) Upper Extremity ROM Grossly WFL bilat. R lags a little behind L. Upper Extremity Sensation No problems per pt report Upper Extremity Strength Grossly 4/5 bilat. No significant difference noted between r and L ADL-Treatment ADL-Current Pt declined most ADLs for today. Pt and daughter educ for him to use call light to get up, for safety. He was able to doff/don socks and slip-on shoes, walk to the bathroom to toilet with SBA and wash hands at sink with SBA. He reported that he fed himself breakfast and didn't need any help with opening packages, cutting food, etc. Vision during ADLs is somewhat limited by ROM restrictions from cervical collar. Pt left up in recliner, all needs met. Eating (FIM): 7 (No dentures) Eating (QC): 6 Grooming (FIM): 5 (SBA) On/Off Footwear (QC): 5 (supervision (put wrong shoe on)) Toileting (FIM): 5 (SBA, tall toilet, grab bar. managed clothing and hygiene) Toileting Hygiene (QC): 4 (SBA) Toilet/Commode Transfer (FIM): 5 (SBA, tall toilet, grab bar) Toilet Transfer (QC): 4 Education OT Patient Education: Purpose of tx/functional activities, Rehab process, Safety issues, Transfer techniques Teaching Recipient: Patient, Family Teaching Methods: Discussion Response to Teaching: Verbalize Understanding, Return Demonstration, Reinforcement Needed OT Short Term Goals Short Term Goals Time Frame: Feb 18, 2019 Grooming(FIM): 6 Toileting(FIM): 6 Toilet/Commode Transfer(FIM): 6 Additional Short Term Goals: 1-Demonstrate ADL Tasks, 2-Verbalize Understanding, 3-ImproveStrength/Robert 1=Demonstrate adherence to instructed precautions during ADL tasks. 2=Patient will verbalize/demonstrate understanding of assistive devices/modifications for ADL. 3=Patient will improve strength/tolerance for activity to enable patient to perform ADL's. OT Jail Goals Jail Goals Time Frame: Feb 26, 2019 Eating (FIM): 7 Eating (QC): 6 Groomin Oral Hygiene (QC): 6 Bathing(FIM): 6 Shower/Bathe Self (QC): 6 Upper Body Dressing(FIM): 6 Upper Body Dressing (QC): 6 Lower Body Dressing(FIM): 6 Lower Body Dressing (QC): 6 On/Off Footwear (QC): 6 Toileting(FIM): 6 Toileting Hygiene (QC): 6 Toilet/Commode Transfer(FIM): 6 Toilet/Commode Transfer (QC): 6 Shower Transfer(FIM): 6 Additional Goals: 1-Demonstrate ADL Tasks, 2-Verbalize Understanding, 3- ImproveStrength/Robert 1=Demonstrate adherence to instructed precautions during ADL tasks. 2=Patient will verbalize/demonstrate understanding of assistive device s/modifications for ADL. 3=Patient will improve strength/tolerance for activity to enable patient to perform ADL's. OT Education/Plan Problem List/Assessment Assessment: Decreased UE Strength, Dependent Transfers, Impaired Cognition, Impaired Funct Balance, Impaired Self-Care Skills Pt would benefit from skilled OT to increase his independence in basic slef care to allow him to safely return home after cervical fusion and stroke. His recently had back surgery and is unable to provide much assistance with his care. Discharge Recommendations Plan/Recommendations: Continue POC Treatment Plan/Plan of Care Treatment,Training & Education: Yes Patient would benefit from OT for education, treatment and training to promote independence in ADL's, mobility, safety and/or upper extremity function for ADL's. Plan of Care: ADL Retraining, Functional Mobility, Group Exercise/Act as Ind (education, exercise, activity tolerance, functional activities, socialization, memory), UE Funct Exercise/Act, UE Neuromus Re-Ed/Coord, Visual/Perceptual Retrain (if indicated) Treatment Duration: Feb 26, 2019 Frequency: At least 5 of 7 days/Wk (IRF) Estimated Hrs Per Day: 1.5 hours per day (1.25 to 1.5) Agreement: Yes Rehab Potential: Fair Time/GCodes Start Time: 10:40 Stop Time: 11:15 Total Time Billed (hr/min): 35 Billed Treatment Time visit, 20 minutes evaluation moderate intensity, 15 minutes ADL TERELL HARRELL OT Feb 11, 2019 14:50
--- NOTE | 2019-02-11 15:24 | Therapy Group Daily Note ---
Therapy Daily Group Note Patient Education Topic Other List Below (memory tips and suggestions) Exercises Sit to/from Stand (with focus on hand placement and balance with chris bag toss) Session Ratio (pt:therapist): 3:1 Goal of Session: Education on ARU Expectations, Memory Strategies Educate and inform patient of memory strategy techniques for taking home medications, keeping appointments and remembering where a car is parked. Goal Met for this Session: Yes Pt Benefit of Group: Contributions to Others, Socialization Actively participated with interaction/socilization with others Other/Notes Pt participated in group introductions and recall of favorite summer activities. Her favorite summer activity is being outdoors. He then actively engaged in providing ideas and suggestions and how to remember to take medications and when to take them. He participated in sit to stand training with cues for correct sequencing to stand up and tossed a chris bag to challenge her balance in standing. Group concluded with a game of "memory" with matching pictures requiring him to participate and actively participate. Pt was able to make one match. Pt was quiet but did seem to enjoy group. Pt returned to room after group and sat up in his chair with needs met. Start Time: 13:00 Stop Time: 14:15 Total Billed Treatment Time: 75 Total Billed Treatment 1 visit GRP 75 min TURNER REID PT Feb 11, 2019 15:24 TONIO MARTINEZ PT Feb 15, 2019 11:32
[2019-02-11 16:40] VITALS: BP 158/84
--- NOTE | 2019-02-11 19:29 | NUR ---
bedside report received from ECTOR CHUA, assume care of pt
[2019-02-11] MEDS ORDERED: METHOTREXATE 2.5 MG TAB PO NR (19:30)
[2019-02-11] MEDS: PATCH REMOVAL TP SCH (21:00)
[2019-02-11] MEDS ORDERED: amLODIPine 10 MG (NORVASC) TAB PO SCH (21:00)
[2019-02-11] MEDS ORDERED: METHOTREXATE 2.5 MG TAB PO SCH (21:00)
--- NOTE | 2019-02-11 21:00 | NUR ---
assessments & interventions completed, see assessments & interventions, scored 0 on NIH STROKE SCALE, refused Gutierrez & Linsey lowe, fsbs 154
[2019-02-11 21:20] VITALS: BP 155/73
[2019-02-11] MEDS: lisINopril 20 MG (PRINIVIL) TABLET PO SCH (21:23)
[2019-02-11] MEDS: VITAMIN D3 1,000 UNITS (CHOLECALCIFEROL) TABLET PO SCH (21:24)
[2019-02-11] MEDS: MAGNESIUM OXIDE (MAG-OX)400 MG TAB PO SCH (21:24)
[2019-02-11] MEDS: MULTIVIT W/MINERALS TAB (THERAGRAN M) PO SCH (21:24)
[2019-02-11] MEDS: diphenhydrAMINE 25 MG TAB (BENADRYL) PO SCH (21:26)
[2019-02-12 05:14] VITALS: BP 163/72
[2019-02-12] MEDS: metFORMIN 500 MG (GLUCOPHAGE) TAB PO SCH (06:13)
--- NOTE | 2019-02-12 07:22 | NUR ---
bedside report given to LAURA CHUA
[2019-02-12] MEDS: LIDOCAINE 4% (SALONPAS) PATCH TOP SCH (07:45)
[2019-02-12] MEDS ORDERED: METHOTREXATE 2.5 MG TAB PO SCH ×2 (09:00→21:00)
[2019-02-12] MEDS: DOCUSATE SODIUM 100 MG (COLACE) CAP PO SCH (09:05)
[2019-02-12] MEDS: SIMvastatin 20 MG (ZOCOR) TAB PO SCH (09:05)
[2019-02-12] MEDS: warFARin 5 MG (COUMADIN) TAB PO SCH (09:05)
[2019-02-12] MEDS: ATENOLOL 50 MG (TENORMIN) TAB PO SCH (09:05)
[2019-02-12] MEDS: LORATADINE (CLARITIN) 10 MG TAB PO SCH (09:05)
[2019-02-12] MEDS: ASPIRIN E.C. 325 MG (ECOTRIN) TABLET PO SCH (09:05)
[2019-02-12] MEDS: LEVOTHYROXINE 25 MCG (LEVOTHROID) TAB PO SCH (09:05)
[2019-02-12] MEDS: SENNA W/DOCUSATE (SENOKOT S) TABLET PO SCH (09:05)
[2019-02-12] MEDS: CLOPIDOGREL 75 MG (PLAVIX) TABLET PO SCH (09:05)
--- NOTE | 2019-02-12 09:27 | PM&R Progress Note ---
Subjective HPI/CC On Admission Date Seen by Provider: Feb 12, 2019 Time Seen by Provider: 08:45 CC: Debility following CVA post op cervical spine surgery HPI: This is a 78yoWM clinic patient of Dr Marino after recently establishing his care after his doctor retired who presents to the IRF in need of recovery following a CVA on 01/31/19 due to carotid artery occlusion following an uncomplicated cervical spine surgery 01/29/19 with right sided weakness, aphasia and right facial droop requiring CTA revealing left ICA near complete occlusion so carotid stent was placed 02/08/19. He has a h/o CVA in 1993 with right sided weakness since that time. He is currently much improved but impulsive and has minimal knowledge of his medical history so I gather most information from old records and will obtain some records from Dr Marino office. Currently he reports his bowels are moving well and he is urinating well. Fall risk noted so bed and chair alarm is placed. PLOF was independent but limited upper extremities due to cervical spine stenosis prior to the surgery. Objective Exam Vital Signs Vital Signs Date Time Temp Pulse Resp B/P (MAP) Pulse Ox O2 Delivery O2 Flow Rate FiO2 02/12/19 09:00 Room Air 02/12/19 06:23 96 02/12/19 05:14 98.2 78 16 163/72 (102) 02/11/19 21:47 2.00 Capillary Refill : Less Than 3 Seconds General Appearance: No Apparent Distress, WD/WN, Chronically ill HEENT: PERRL/EOMI, Normal ENT Inspection, Pharynx Normal, Moist Mucous Membranes Neck: Full Range of Motion, Normal Inspection, Non Tender, Supple Respiratory: Chest Non Tender, Lungs Clear, Normal Breath Sounds, No Accessory Muscle Use, No Respiratory Distress Cardiovascular: Regular Rate, Rhythm, No Edema, No Gallop, No JVD, No Murmur Gastrointestinal: Normal Bowel Sounds, No Organomegaly, No Pulsatile Mass, Non Tender, Soft Back: Normal Inspection, No CVA Tenderness, No Vertebral Tenderness, Decreased Range of Motion (neck due to brace in place) Extremity: Normal Capillary Refill, Normal Inspection, Normal Range of Motion, Non Tender, No Calf Tenderness, No Pedal Edema Neurologic/Psychiatric: Alert, Oriented x3, Normal Mood/Affect, Aphasia (subtle exp aphasia), Disoriented (subtle deficit noted), Facial Droop (right), Motor Weakness (right arm, right leg 4/5) Skin: Normal Color, Warm/Dry Lymphatic: No Adenopathy Results/Procedures Lab Patient resulted labs reviewed. FIM Transfers Therapy Code Descriptions/Definitions Functional [place] Measure: 0=Not Assessed/NA 4=Minimal Assistance 1=Total Assistance 5=Supervision or Setup 2=Maximal Assistance 6=Modified [place] 3=Moderate Assistance 7=Complete [place] Therapy Quality Codes: 6 Independent with activity with or without an assistive device 5 Patient requires set up or clean up by helper. Patient completes activity by themselves 4 Supervision or touching assist (CGA). [place] provide cues , steadying assist 3 The helper provides less than half the effort to complete the activity 2 The helper provides more than half the effort to complete the activity 1 Dependent. The helper does all the effort to complete an activity 7 Patient refused to complete or attempt activity 9 The patient did not perform the activity before the current illness or injury 88 Not attempted due to Medical conditions or safety concerns Transfers (B, C, W/C) (FIM): 4 Scootin Rollin Roll Left to Right (QC): 4 Supine to/from Sit: 5 Sit to/from Stand: 4 (CGA provided) Sit to Lying (QC): 4 Sit to Stand (QC): 4 Chair/Ipi-fl-Negmw Xfer(QC): 4 Car Transfer (QC): 4 Gait Training Does the Patient Walk?: Yes Gait (FIM): 4 Distance (FIM): 3=150 ft Distance: 800, 200 Walk 10 feet (QC): 4 Walk 50 ft with 2 Turns(QC): 4 Walk 150 ft (QC): 4 Walking 10ft/uneven surface-QC: 4 Gait Level of Assist: 4 (CGA provided for safety, slight unsteadiness, leobardo outside amb on uneven surfaces. No LOB) Gait Persons Needed: 1 Gait Assistive Device: Cane Single Point Wheelchair Training Does the Pt Use a Wheelchair?: No Distance: SEE PT GOALS Stair Training Stair Training: Handrails/: uses cane Stairs (FIM): 4 (CGA and verb inst) #of Steps: 3 1 Step (curb) (QC): 4 4 Steps (QC): 4 Stairs: Pattern: Reciprocal Level of Assist: 4 Balance Picking up an Object (QC): 4 Mental Status/Objective Comprehension: 7 Expression: 5 Social Interaction: 7 Problem Solvin Memory: 5 ADL-Treatment Feedin (No dentures) Eating (QC): 6 Groomin (SBA) On/Off Footwear (QC): 5 (supervision (put wrong shoe on)) Toiletin (SBA, tall toilet, grab bar. managed clothing and hygiene) Toileting Hygiene (QC): 4 (SBA) Toilet/Commode Transfer: 5 (SBA, tall toilet, grab bar) Toilet Transfer (QC): 4 Assessment/Plan Assessment and Plan Assess & Plan/Chief Complaint Assessment: Debility following post op CVA due to right carotid stenosis 01/31/19 s/p stent placement 02/08/19 h/o DVT's x 2 2012 and 2013 following surgery DAYANNA on CPAP Dementia Cervical spine stenosis s/p surgery HTN DM HLP Hypothyroidism Coumadin OAC Plan: Monitor labs Pain control IRF protocols Monitor closely (1) Cerebrovascular accident (CVA) due to stenosis of carotid artery CALLIE GILLILAND DO Feb 12, 2019 09:27
--- NOTE | 2019-02-12 09:28 | Individualized Plan of Care ---
Individualized Plan of Care Rehab Nursing IPOC Order Admission Date Feb 10, 2019 at 18:32 Current Orders Orders Follow-Up Appointment (02/10/19 15:34) Nursing Communication (Order) (02/10/19 15:42) Nursing Communication (Order) (02/10/19 15:47) Admission Order(Inpt,Obs,Sdc) (02/10/19 16:04) Vital Signs: Per Unit Policy ( 08,16,00 (02/10/19 16:04) Pen Or Pencil Assembly Machine Operator-Inpt Rehab Con (02/10/19 16:04) Rehab Nursing Orders-Ipoc (02/10/19 16:04) Physical Therapy Rehab Orders (02/10/19 16:04) Occupational Therapy Rehab Ord (02/10/19 16:04) Speech Therapy Rehab Orders (02/10/19 16:04) Intake & Output 06,14,22 (02/10/19 16:04) Precautions (Aru) (02/10/19 16:04) Weekly Weight (Lbs) WEEK (02/10/19 16:04) Rehab-Intensity Of Therapy (02/10/19 16:04) Cbc With Automated Diff (02/11/19 06:00) Comprehensive Metabolic Panel (02/11/19 06:00) Heart Healthy (02/11/19 Breakfast) Initiate Admission Nursing Pro .admission (02/10/19 16:04) Nursing Communication (Order) (02/10/19 16:04) Acetaminophen Tablet (Tylenol Tablet) (02/10/19 16:15) Calcium Carbonate Chew Tablet (Antacid C (02/10/19 16:15) Diphenhydramine Tablet (Benadryl Tablet) (02/10/19 16:15) Docusate Sodium Capsule (Colace Capsule) (02/10/19 16:15) Loperamide Capsule (Imodium Capsule) (02/10/19 16:15) Melatonin Tablet (Melatonin Tablet) (02/10/19 16:15) Ondansetron Oral Dissolve Tab (Zofran (02/10/19 16:15) Hydrocodone/Apap 5/325 Tablet (Lortab 5 (02/10/19 16:15) Senna S Tablet (Senokot S Tablet) (02/10/19 21:00) Aspirin Enteric Coated Tablet (Ecotrin T (02/11/19 09:00) Atenolol Tablet (Tenormin Tablet) (02/11/19 09:00) Clopidogrel Tablet (Plavix Tablet) (02/11/19 09:00) Diphenhydramine Tablet (Benadryl Tablet) (02/10/19 21:00) Docusate Sodium Capsule (Colace Capsule) (02/10/19 21:00) Levothyroxine Tablet (Synthroid Tablet) (02/11/19 09:00) Loratadine Tablet (Claritin Tablet) (02/11/19 09:00) Magnesium Oxide Tablet (Mag Ox Tablet) (02/10/19 21:00) Therapeutic Multivitamin Tab (Vitamins, (02/10/19 21:00) Oxycodone Immediate Rel Tablet (Oxyir Ta (02/10/19 17:45) Simvastatin Tablet (Zocor Tablet) (02/11/19 09:00) Warfarin Tablet (Coumadin Tablet) (02/11/19 09:00) Acetaminophen Tablet (Tylenol Tablet) (02/10/19 19:15) Cholecalciferol Capsule/Tablet (Vitamin (02/10/19 21:00) Heparin Injection (Heparin Injection) (02/10/19 22:00) (Nf) Metformin Hcl (02/11/19 07:00) Methocarbamol Tablet (Robaxin Tablet) (02/10/19 19:15) Senna S Tablet (Senokot S Tablet) (02/10/19 21:00) Protime With Inr (02/11/19 06:00) Allopurinol Tablet (Zyloprim Tablet) (02/11/19 09:00) Amlodipine Tablet (Norvasc Tablet) (02/11/19 21:00) Lidocaine 4% Patch (Salonpas 4% Patch) (02/11/19 09:00) Patch Removal (Patch Removal) (02/10/19 21:00) Lisinopril Tablet (Zestril Tablet) (02/10/19 21:00) Sequential Compression Device 08,20 (02/10/19 19:31) Dvt/Vte Risk - Notifiy Physici 08 (02/10/19 19:31) Sequential Compression Device 08,20 (02/10/19 20:27) Dvt/Vte Risk - Notifiy Physici 08 (02/10/19 20:27) Oxygen Delivery Set Up (02/10/19 21:43) Methotrexate Tablet (Methotrexate Tablet (02/14/19 21:00) Methotrexate Tablet (Methotrexate Tablet (02/15/19 09:00) Metformin Tablet (Glucophage Tablet) (02/11/19 07:00) Patient Visit (02/11/19 ) Pt Eval Moderate Complexity (02/11/19 ) Functional Activities, Ea 15 (02/11/19 ) Patient Visit (02/11/19 ) Gait Training, Ea 15 Min (02/11/19 ) Patient Visit (02/11/19 ) Therapeutic, Group (02/11/19 ) Patient Visit (02/11/19 ) Speech Sound Lang Comp (02/11/19 ) Methotrexate Tablet (Methotrexate Tablet (02/11/19 21:00) Methotrexate Tablet (Methotrexate Tablet (02/11/19 19:30) Methotrexate Tablet (Methotrexate Tablet (02/12/19 09:00) Protime With Inr (02/12/19 09:25) Enoxaparin Injection (Lovenox Injection) (02/12/19 09:30) Methotrexate Tablet (Methotrexate Tablet (02/12/19 21:00) Attending Discharge Inpt/Inobs (02/12/19 11:56) Patient Visit (02/12/19 ) Gait Training, Ea 15 Min (02/12/19 ) Exercise Therap, Ea 15 Min (02/12/19 ) Functional Activities, Ea 15 (02/12/19 ) Patient Visit (02/12/19 ) Treat. Speech/Lang/Voice (02/12/19 ) Rehab Nursing Orders: Ongoing Assess. of Cognitive Status, Ongoing Assess. of Function Status, Disease Management & Educaiton, DVT Prophylaxis, Fall Prevention, Fluid/Electrolyte/Nutrition Mgmt, Patient/Family Support Intensity of Therapy to be met Patient to be seen: Min.3h per day/5 of 7d PT IPOC Problem List: Activity Tolerance, Functional Strength, Safety, Balance, Gait, Transfer Treatment Plan: Continue Plan of Care Education, Functional Activity Robert, Functional Strength, Group Therapy, Gait, Safety, Therapeutic Exercise, Transfers Treatment Duration: Mar 04, 2019 Frequency: At least 5 of 7 days/Wk (IRF) Estimated Hrs Per Day: 1.5 hours per day OT IPOC Problems: Decreased UE Strength, Dependent Transfers, Impaired Cognition, Impaired Funct Balance, Impaired Self-Care Skills OT Treatment, Training and Edu: Yes OT Problems Pt would benefit from skilled OT to increase his independence in basic slef care to allow him to safely return home after cervical fusion and stroke. His recently had back surgery and is unable to provide much assistance with his care. Plan of Care: ADL Retraining, Functional Mobility, Group Exercise/Act as Ind (education, exercise, activity tolerance, functional activities, socialization, memory), UE Funct Exercise/Act, UE Neuromus Re-Ed/Coord, Visual/Perceptual Retrain (if indicated) Treatment Duration: Feb 26, 2019 Frequency: At least 5 of 7 days/Wk (IRF) Estimated Hrs Per Day: 1.5 hours per day (1.25 to 1.5) ST IPOC Speech Therapy Treatment Plan: Continue Plan of Care Treatment Duration: Feb 26, 2019 Frequency: 5 times per week Estimated Hrs Per Day: .5 hour per day Pen Or Pencil Assembly Machine Operator/Case Mgmt Pen Or Pencil Assembly Machine Operator/Case Managemen: Discharge Planning Dietitian/Radiologic Technologist Chief Dietitian/Radiologic Technologist Chief to monitor nutritional status and make changes and/or recommendations as needed and work with speech pathology on dietary upgrades as the occur. Physician IPOC Medical Issues being managed closely and that require the 24 hour availability of a physician: Recent stroke and on anticoagulation and antiplatelet therapy awaiting return of therapeutic INR to prevent additional stroke Brief Synthesis of Preadmission Screen, Post-Admission Evaluation, and Therapy Evaluations: Physical therapy will focus on ambulation and fall risk prevention Occupational therapy will focus on returning of independence with ADLs Medical Prognosis: Good Anticipated Length of Stay: 5 days CALLIE GILLILAND DO Feb 12, 2019 09:28
[2019-02-12] MEDS ORDERED: ENOXAPARIN 100 MG/1 ML (LOVENOX) SYR SC SCH (09:30)
--- NOTE | 2019-02-12 09:39 | Physical Therapy Daily Note ---
PT Daily Note-Current Subjective Pt reports he wants to and thinks he is ready to go home today. Agreeable to PT session. Spoke with social work, states he is going home today Pain Numeric Pain Scale: 0-No Pain Comment: states he doesn't take pain med, min increased pain with activity post cerv Appearance At beginning of session, pt sitting up in recliner, awake and alert At end of session, sitting up in recliner with phone, call light and bedside table within reach Mental Status Patient Orientation: Person, Place, Time, Eyes Open, Situation neck brace Transfers Therapy Code Descriptions/Definitions Functional Harper Measure: 0=Not Assessed/NA 4=Minimal Assistance 1=Total Assistance 5=Supervision or Setup 2=Maximal Assistance 6=Modified Harper 3=Moderate Assistance 7=Complete Harper Therapy Quality Codes: 6 Independent with activity with or without an assistive device 5 Patient requires set up or clean up by helper. Patient completes activity by themselves 4 Supervision or touching assist (CGA). [place] provide cues , steadying assist 3 The helper provides less than half the effort to complete the activity 2 The helper provides more than half the effort to complete the activity 1 Dependent. The helper does all the effort to complete an activity 7 Patient refused to complete or attempt activity 9 The patient did not perform the activity before the current illness or injury 88 Not attempted due to Medical conditions or safety concerns Transfers (B, C, W/C) (FIM): 6 Scootin (bed flat, no bedrails) Rollin (bed flat, no bedrails) Roll Left to Right (QC): 5 Supine to/from Sit: 6 (bed flat, no bedrails, good technique to protect neck) Sit to/from Stand: 6 (proper safe technique and hand placement) Sit to Lying (QC): 5 Sit to Stand (QC): 5 Chair/Kay-sp-Hwata Xfer(QC): 5 Bed to/from Chair: 6 Car Transfer (QC): 5 Gait Training Does the Patient Walk?: Yes Gait (FIM): 6 Distance (FIM): 3=150 ft Distance: >1000 x2 Walk 10 feet (QC): 5 Walk 50 ft with 2 Turns(QC): 5 Walk 150 ft (QC): 5 Walking 10ft/uneven surface-QC: 5 Gait Level of Assist: 6 Gait Persons Needed: 1 Gait Assistive Device: None Pt admits he probably won't use cane at home, no AD used during treatment session. Pt does walk with a limp, no LOB, Good step through and length. Slight path deviation at times on uneven surfaces. Stair Training Stair Training: Handrails/: 2 handrails Stairs (FIM): 5 #of Steps: 23 (23 in stairwell, 12 in gym) 1 Step (curb) (QC): 5 4 Steps (QC): 5 12 Steps (QC): 5 Stairs: Pattern: Step to Level of Assist: 5 x2 episodes verb inst given to make sure R foot is all the way on step instead of only half foot, otherwise steady Balance Picking up an Object (QC): 4 Exercises Standing: Marching, Maze, Mini squats, Sit to Stand, Side steps, Step-ups, Stepping over objects, Unilateral stance Standing Reps: 20 all standing balance activities performed without UE support NuStep Minutes: 20 NuStep Workload: 6 (seat 10, arms 10) Treatments FIM scoring, bed mobility, safety, transfers, education, gait, stairs, curb, r amp, balance, activity tolerance, functional mobility, strengthening Assessment Current Status: Good Progress PT Short Term Goals Short Term Goals Time Frame: Feb 18, 2019 Gait (FIM): 6 Gait Distance Comment: 500' Gait Level of Assist: 6 Gait Assistive Device: Cane Single Point Wheelchair Distance: SEE PT GOALS PT Detention Goals Detention Goals PT Detention Goals Time Frame: Mar 04, 2019 Transfers (B,C,W/C) (FIM): 7 Sit to Lying (QC): 6 Lying-Sitting on Side/Bed(QC): 6 Sit to Stand (QC): 6 Rollin Roll Left to Right (QC): 6 Chair/Biy-tr-Gzmos Xfer(QC): 6 Car Transfer (QC): 6 Gait (FIM): 7 Distance: 500' Walk 10 feet (QC): 6 Walk 10ft-Uneven Surface(QC): 6 Walk 50ft with 2 Turns (QC): 6 Walk 150 ft (QC): 6 Gait Level of Assist: 7 Gait Assistive Device: None Stairs (FIM): 5 # of Steps: 12 1 Step (curb) (QC): 4 4 Steps (QC): 4 12 Steps (QC): 4 Stairs Level Of Assist: 5 PT Plan Treatment/Plan Treatment Plan: Continue Plan of Care Treatment Plan: Education, Functional Activity Robert, Functional Strength, Group Therapy, Gait, Safety, Therapeutic Exercise, Transfers Treatment Duration: Mar 04, 2019 Frequency: At least 5 of 7 days/Wk (IRF) Estimated Hrs Per Day: 1.5 hours per day Patient and/or Family Agrees t: Yes Safety Risks/Education Patient Education: Gait Training, Transfer Techniques, Steps, Reviewed Precautions, Disease Process, Safety Issues Teaching Recipient: Patient Teaching Methods: Discussion Response to Teaching: Verbalize Understanding, Return Demonstration Discharge Recommendations Plan discharge home today Therapy D/C Recommendations: Home w/ Family Support, Physical Therapy Outpatient Time/GCodes Time In: 930 Time Out: 1100 Total Billed Treatment Time: 90 Total Billed Treatment 1 visit, GT x 3 units, EX x 2 units, FA x1 units PERLA RAINES PTA Feb 12, 2019 09:39
[2019-02-12 09:51] LABS: PROTHROMBIN TIME PATIENT 13.3 SEC (12.2-14.7)
--- NOTE | 2019-02-12 11:09 | NUR ---
CUT OFF SAWYER received notification from multiple staff members of patient's request to discharge home today. Patient admitted to ARU late in the day on 65; however, is performing all therapy activities with contact-guard assistance to supervision. Per spouse, [place], patient/spouse were not informed that therapies would not be received over the weekend. They were given the option to return home following discharge from [facility] versus ARU; however, they were misinformed that ARU stay could be "just a couple days" and that therapy would be daily. Patient believes he can fully manage at home rather than remain hospitalized. Patient's is retired and can provide necessary physical assistance as needed as well as any anti-coagulant injections as she previously managed this prior to hospitalization. Therapy is recommended patient utilized a single-point cane for ambulation; however, patient refuses to use. Patient spouse reports that patient has the personality of "doing what he wants". As patient is insistent on returning home today, he is agreeable to receive outpatient PT and OT services and request referral to [facility] in [place], [place]. CUT OFF SAWYER sent referral. Although patient is currently refusing use of single-point cane, CUT OFF SAWYER requested Dr. Santos to complete order for this for future desire. CUT OFF SAWYER informed patient and spouse of the order and supporting documentation if they wish to seek equipment. CUT OFF SAWYER reviewed IMM and patient choice letter for outpatient therapy, neither patient or spouse expressed concerned with discharge. Please see discharge summary for further information.
[2019-02-12] MEDS ORDERED: ACHD5005 PO (11:56)
[2019-02-12] MEDS ORDERED: OXC5T PO (11:56)
[2019-02-12] MEDS ORDERED: ENOX100D4 SC (11:56)
[2019-02-12] MEDS ORDERED: Lidocaine 4% Patch TOP (11:56)
[2019-02-12] MEDS ORDERED: SENN-20 PO (11:56)
[2019-02-12] MEDS ORDERED: CLOP75TA28 PO (11:56)
[2019-02-12] MEDS ORDERED: ASPI325T32 PO (11:56)
[2019-02-12] MEDS ORDERED: METH750T3 PO (11:56)
--- NOTE | 2019-02-12 12:01 | Discharge Summary ---
Diagnosis/Chief Complaint Date of Admission Feb 10, 2019 at 18:32 Date of Discharge Discharge Date: Feb 12, 2019 Discharge Diagnosis (1) Cerebrovascular accident (CVA) due to stenosis of carotid artery (2) DAYANNA (obstructive sleep apnea) (3) Carotid stenosis, right (4) History of right common carotid artery stent placement (5) Acquired hypercoagulable state (6) Psoriasis (7) Hyperlipidemia (8) Dementia (9) Cervical stenosis of spine (10) Basal cell carcinoma (BCC) (11) Diabetes mellitus (12) Presbycusis of both ears (13) GERD (gastroesophageal reflux disease) (14) History of DVT of lower extremity (15) Gout (16) Hypertension (17) Vitamin B12 deficiency (18) Hypothyroidism (19) Immunosuppressed status (20) Warfarin anticoagulation Discharge Summary Discharge Physical Examination Allergies: Coded Allergies: tramadol (Verified Adverse Reaction, Unknown, Possible delirium, 02/10/19) Vitals & I&Os Vital Signs Date Time Temp Pulse Resp B/P (MAP) Pulse Ox O2 Delivery O2 Flow Rate FiO2 02/12/19 09:00 Room Air 02/12/19 06:23 96 02/12/19 05:14 98.2 78 16 163/72 (102) 02/11/19 21:47 2.00 Hospital Course Was the Problem List Reviewed?: Yes Hospital course: Patient had a brief hospital course. He was admitted to inpatient rehabilitation after discharge from [facility] after suffering a stroke from carotid artery stenosis after elective cervical spine stenosis surgery. He was admitted to inpatient rehabilitation due to cognitive deficits and to return to independent ADLs and ambulation. Patient chose to be discharged and to continue his therapy at home and Lovenox injections were prescribed since his INR is 1.0 and not therapeutic on Coumadin. All medications were reviewed and patient was discharged in improved condition without inpatient rehabilitation 5 day course as originally planned. Labs (last 24 hrs) Laboratory Tests 02/10/19 20:22: Glucometer 259H 02/10/19 21:18: Glucometer 254H 02/11/19 05:52: Glucometer 154H 02/11/19 06:00: Prothrombin Time 13.5, INR Comment 1.0, Sodium Level 140, Potassium Level 4.0, Chloride Level 104, Carbon Dioxide Level 25, Anion Gap 11, Blood Urea Nitrogen 14, Creatinine 0.99, Estimat Glomerular Filtration Rate > 60, BUN/Creatinine Ratio 14, Glucose Level 155H, Calcium Level 9.6, Corrected Calcium 9.9, Total Bilirubin 0.4, Aspartate Amino Transf (AST/SGOT) 13, Alanine Aminotransferase (ALT/SGPT) 15, Alkaline Phosphatase 76, Total Protein 7.0, Albumin 3.6 02/11/19 06:06: White Blood Count 6.9, Red Blood Count 3.91L, Hemoglobin 11.6L, Hematocrit 36L, Mean Corpuscular Volume 93, Mean Corpuscular Hemoglobin 30, Mean Corpuscular Hemoglobin Concent 32, Red Cell Distribution Width 13.9, Platelet Count 212, Mean Platelet Volume 9.6, Neutrophils (%) (Auto) 72, Lymphocytes (%) (Auto) 16, Monocytes (%) (Auto) 9, Eosinophils (%) (Auto) 3, Basophils (%) (Auto) 0, Neutrophils # (Auto) 5.0, Lymphocytes # (Auto) 1.1, Monocytes # (Auto) 0.6, Eosinophils # (Auto) 0.2, Basophils # (Auto) 0.0 02/12/19 05:59: Glucometer 137H 02/12/19 09:35: Prothrombin Time 13.3, INR Comment 1.0 Pending Labs Laboratory Tests 02/10/19 20:22: Glucometer 259 02/10/19 21:18: Glucometer 254 02/11/19 05:52: Glucometer 154 02/11/19 06:00: Prothrombin Time 13.5, INR Comment 1.0, Sodium Level 140, Potassium Level 4.0, Chloride Level 104, Carbon Dioxide Level 25, Anion Gap 11, Blood Urea Nitrogen 14, Creatinine 0.99, Estimat Glomerular Filtration Rate > 60, BUN/Creatinine Ratio 14, Glucose Level 155, Calcium Level 9.6, Corrected Calcium 9.9, Total Matias irubin 0.4, Aspartate Amino Transf (AST/SGOT) 13, Alanine Aminotransferase (ALT/SGPT) 15, Alkaline Phosphatase 76, Total Protein 7.0, Albumin 3.6 02/11/19 06:06: White Blood Count 6.9, Red Blood Count 3.91, Hemoglobin 11.6, Hematocrit 36, Mean Corpuscular Volume 93, Mean Corpuscular Hemoglobin 30, Mean Corpuscular Hemoglobin Concent 32, Red Cell Distribution Width 13.9, Platelet Count 212, Mean Platelet Volume 9.6, Neutrophils (%) (Auto) 72, Lymphocytes (%) (Auto) 16, Monocytes (%) (Auto) 9, Eosinophils (%) (Auto) 3, Basophils (%) (Auto) 0, Neutrophils # (Auto) 5.0, Lymphocytes # (Auto) 1.1, Monocytes # (Auto) 0.6, Eosinophils # (Auto) 0.2, Basophils # (Auto) 0.0 02/12/19 05:59: Glucometer 137 02/12/19 09:35: Prothrombin Time 13.3, INR Comment 1.0 Discharge Home Medications: Active Scripts Active [Lidocaine 4% Patch] 1 EA Patch 1 Ea TOP DAILY Senna-Time S Tablet (Sennosides/Docusate Sodium) 1 Each Tablet 2 Ea PO BID Oxyir Tablet (Oxycodone HCl) 5 Mg Tab 5 Mg PO Q4H PRN Hydrocodone/Acetaminophen 5/325mg Tablet (Acetaminophen/Hydrocodone Bitart) 1 Tab Tab 1 Tab PO Q4H PRN Aspirin EC (Aspirin) 325 Mg Tablet.dr 325 Mg PO DAILY Clopidogrel (Clopidogrel Bisulfate) 75 Mg Tablet 75 Mg PO DAILY Enoxaparin Sodium 100 Mg/1 Ml Syringe 90 Mg SC Q12H Methocarbamol 750 Mg Tablet 750 Mg PO TID PRN Reported Multivitamins (Multivitamin) 1 Each Tablet 1 Tab PO HS Vitamin B Complex 1 Each Tablet 1 Tab PO HS Simvastatin 20 Mg Tablet 20 Mg PO DAILY Metformin HCl 500 Mg Tablet 500 Mg PO BID WITH MEALS Methotrexate (Methotrexate Sodium) 2.5 Mg Tablet 5 Mg PO UD TAKES 2 (2.5MG) TABLETS ON FRIDAY EVENING, FRIDAY MORNING, AND FRIDAY EVENING (TOTAL OF 6 TABLETS) Magox 400 (Magnesium Oxide) 400 Mg Tablet 400 Mg PO HS Loratadine 10 Mg Tablet 10 Mg PO DAILY Levothyroxine Sodium 25 Mcg Tablet 25 Mcg PO DAILY Benadryl Allergy (Diphenhydramine HCl) 25 Mg Tablet 25 Mg PO HS Vitamin D3 (Cholecalciferol (Vitamin D3)) 1,000 Unit Capsule 1,000 Unit PO HS Allopurinol 300 Mg Tablet 300 Mg PO DAILY PRN Tylenol Extra Strength (Acetaminophen) 500 Mg Tablet 1,000 Mg PO Q6H PRN Warfarin Sodium 5 Mg Tablet 5 Mg PO DAILY Atenolol 50 Mg Tablet 50 Mg PO DAILY Lotrel 10-20 mg Capsule (Amlodipine/Benazepril) 1 Cap Cap 1 Cap PO HS Instructions to patient/family Please see electronic discharge instructions given to patient. Diagnosis/Problems Diagnosis/Problems (1) Cerebrovascular accident (CVA) due to stenosis of carotid artery Clinical Quality Measures DVT/VTE Risk/Contraindication: Risk Factor Score Per Nursin RFS Level Per Nursing on Admit: 4+=Very High CALLIE GILLILAND DO Feb 12, 2019 12:01
--- NOTE | 2019-02-12 13:00 | Occupational Ther Daily Note ---
OT Current Status-Daily Note Subjective Pt seen in room, up in recliner, agreeable to OT. No pain mentioned Appearance Alert, cooperative Mental Status/Objective Therapy Code Descriptions/Definitions Functional [place] Measure: 0=Not Assessed/NA 4=Minimal Assistance 1=Total Assistance 5=Supervision or Setup 2=Maximal Assistance 6=Modified [place] 3=Moderate Assistance 7=Complete [place] ADL-Treatment Pt got up from recliner without help and walked to bathroom, using cane, with no LOB. Transferred into shower and on/off shower bench with SBA. Stood to step out of shoes, using grab bar for safety, no LOB. Doffed clothing without assistance. Washed and dried all parts, setup, SBA when standing in shower. Shower bench, grab bar, hand held shower. Donned boxers and shorts with SBA for standing. Donned shirt with setup and able to manage buttons, although with extra time. Donned socks and shoes with setup. Also stood at sink to groom mod I. Able to feed himself mod I, taking extra time. Pt left up in recliner, all needs met. Wants to go home today. Therapy Code Descriptions/Definitions Functional [place] Measure: 0=Not Assessed/NA 4=Minimal Assistance 1=Total Assistance 5=Supervision or Setup 2=Maximal Assistance 6=Modified [place] 3=Moderate Assistance 7=Complete [place] Therapy Quality Codes: 6 Independent with activity with or without an assistive device 5 Patient requires set up or clean up by helper. Patient completes activity by themselves 4 Supervision or touching assist (CGA). [place] provide cues , steadying assist 3 The helper provides less than half the effort to complete the activity 2 The helper provides more than half the effort to complete the activity 1 Dependent. The helper does all the effort to complete an activity 7 Patient refused to complete or attempt activity 9 The patient did not perform the activity before the current illness or injury 88 Not attempted due to Medical conditions or safety concerns Eating (FIM): 6 (extra time) Eating (QC): 6 Grooming (FIM): 6 (Stood at sink to brush teeth, mod I) Oral Hygiene (QC): 6 Bathing (FIM): 5 (SBA for standing to wash/dry bottom. Setup. Shower bench, grab bar, hand held shower) Shower/Bathe Self (QC): 4 (SBA) Upper Body (FIM): 5 (Extra time to complete buttons, but able to do so. setup) Upper Body Dressing (QC): 5 (setup) Lower Body Dressing (FIM): 5 (SBA pants, undewear. Socks, shoes, setup) Lower Body Dressing (QC): 4 (SBA for standing) On/Off Footwear (QC): 5 (setup) Shower Transfer(FIM): 5 (SBA getting in and out of shower, on and off shower bench) Education OT Patient Education: Modified ADL techniques, Progress toward Goal/Update tx plan, Purpose of tx/functional activities, Safety issues Teaching Recipient: Patient Teaching Methods: Discussion Response to Teaching: Verbalize Understanding, Return Demonstration OT Short Term Goals Short Term Goals Time Frame: Feb 18, 2019 Grooming(FIM): 6 Toileting(FIM): 6 Toilet/Commode Transfer(FIM): 6 Additional Short Term Goals: 1-Demonstrate ADL Tasks, 2-Verbalize Understanding, 3-ImproveStrength/Robert 1=Demonstrate adherence to instructed precautions during ADL tasks. 2=Patient will verbalize/demonstrate understanding of assistive devices/modifications for ADL. 3=Patient will improve strength/tolerance for activity to enable patient to perform ADL's. OT [facility] Goals [facility] Goals Time Frame: Feb 26, 2019 Eating (FIM): 7 Eating (QC): 6 Groomin Oral Hygiene (QC): 6 Bathing(FIM): 6 Shower/Bathe Self (QC): 6 Upper Body Dressing(FIM): 6 Upper Body Dressing (QC): 6 Lower Body Dressing(FIM): 6 Lower Body Dressing (QC): 6 On/Off Footwear (QC): 6 Toileting(FIM): 6 Toileting Hygiene (QC): 6 Toilet/Commode Transfer(FIM): 6 Toilet/Commode Transfer (QC): 6 Shower Transfer(FIM): 6 Additional Goals: 1-Demonstrate ADL Tasks, 2-Verbalize Understanding, 3- ImproveStrength/Robert 1=Demonstrate adherence to instructed precautions during ADL tasks. 2=Patient will verbalize/demonstrate understanding of assistive device s/modifications for ADL. 3=Patient will improve strength/tolerance for activity to enable patient to perform ADL's. 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 His recently had back surgery and is unable to provide much assistance with his care. Discharge Recommendations Plan/Recommendations: Continue POC Treatment Plan/Plan of Care Patient would benefit from OT for education, treatment and training to promote independence in ADL's, mobility, safety and/or upper extremity function for ADL's. Plan of Care: ADL Retraining, Functional Mobility, Group Exercise/Act as Ind (education, exercise, activity tolerance, functional activities, socialization, memory), UE Funct Exercise/Act, UE Neuromus Re-Ed/Coord, Visual/Perceptual Retrain (if indicated) Treatment Duration: Feb 26, 2019 Frequency: At least 5 of 7 days/Wk (IRF) Estimated Hrs Per Day: 1.5 hours per day (1.25 to 1.5) Agreement: Yes Rehab Potential: Fair Time/GCodes Start Time: 08:30 Stop Time: 09:30 Total Time Billed (hr/min): 60 Billed Treatment Time visit, 60 minutes ADL TERELL HARRELL OT Feb 12, 2019 13:00
--- NOTE | 2019-02-12 13:19 | Therapy Team Discharge Summary ---
Therapy Discharge Summary Discharge Recommendations Date of Discharge Therapy D/C Recommendations: Home w/ Family Support, Physical Therapy Outpatient Physical Therapy Patient came to rehab following a cervical fusion and CVA. Upon evaluation patient performed bed mobility with SBA, supine <-> sit with SBA, sit <-> stand with SBA, transfers with SBA, car transfer SBA, ambulated 400' with SBA without an assistive device (including 50' with at least 2 turns of 90 degrees but needs CGA when ambulating 10' over an uneven surface), and went up and down 4 steps using 1 handrail with CGA. Patient has been performing bed mobility and transfer training, balance and endurance training, functional strengthening, stair training, gait training, and education. Patient has made good progress and has met all of his fpc goals. Now, patient is independent with bed mobility and transfers, car transfer mod I, ambulated over 1000' without an assistive device with mod I (including 50' with at least 2 turns of 90 degrees and 10' over an uneven surface), and can go up and down 23 steps using 2 handrails with SBA. Patient is discharging from this facility today and will be discharged from PT at this time. Occupational Therapy Decreased UE Strength, Dependent Transfers, Impaired Cognition, Impaired Funct Balance, Impaired Self-Care Skills PT Housekeeper Home Goals [facility] Goals PT [facility] Goals Time Frame: Mar 04, 2019 Transfers (B,C,W/C) (FIM): 7 Roll Left to Right (QC): 6 Sit to Lying (QC): 6 Lying-Sitting on Side/Bed(QC): 6 Sit to Stand (QC): 6 Chair/Hwt-nc-Fmzuu Xfer(QC): 6 Car Transfer (QC): 6 Gait (FIM): 7 Distance: 500' Walk 10 feet (QC): 6 Walk 10ft-Uneven Surface(QC): 6 Walk 50ft with 2 Turns (QC): 6 Walk 150 ft (QC): 6 Gait Level of Assist: 7 Gait Assistive Device: None Stairs (FIM): 5 # of Steps: 12 1 Step (curb) (QC): 4 4 Steps (QC): 4 12 Steps (QC): 4 Stairs Level Of Assist: 5 OT [facility] Goals Housekeeper Home Goals Time Frame: Feb 26, 2019 Eating (FIM): 7 Eating (QC): 6 Oral Hygiene (QC): 6 Grooming(FIM): 6 Bathing(FIM): 6 Shower/Bathe Self (QC): 6 Upper Body Dressing(FIM): 6 Upper Body Dressing (QC): 6 Lower Body Dressing(FIM): 6 Lower Body Dressing (QC): 6 On/Off Footwear (QC): 6 Toileting(FIM): 6 Toileting Hygiene (QC): 6 Toilet/Commode Transfer(FIM): 6 Toilet/Commode Transfer (QC): 6 Shower Transfer(FIM): 6 Additional Goals: 1-Demonstrate ADL Tasks, 2-Verbalize Understanding, 3-I mproveStrength/Robert 1=Demonstrate adherence to instructed precautions during ADL tasks. 2=Patient will verbalize/demonstrate understanding of assistive devices/modifications for ADL. 3=Patient will improve strength/tolerance for activity to enable patient to perform ADL's. Speech Housekeeper Home Goals [facility] Goals The patient will improve his cognitive skills for safety and independence in order to return home safely. ALEX RODRIGUEZ PT Feb 12, 2019 13:19
--- NOTE | 2019-02-12 14:17 | Occupational Ther Daily Note ---
OT Current Status-Daily Note Subjective Pt seen in room, up in recliner, agreeable to OT. Going home today Appearance Alert, cooperative Mental Status/Objective Therapy Code Descriptions/Definitions Functional [place] Measure: 0=Not Assessed/NA 4=Minimal Assistance 1=Total Assistance 5=Supervision or Setup 2=Maximal Assistance 6=Modified [place] 3=Moderate Assistance 7=Complete [place] ADL-Treatment Pt walked to bathroom and toileted with mod I, getting on and off toilet, managing clothing and hygiene without help or LOB. Tall toilet, grab bar, cane. Walked back to recliner, all needs met. Therapy Code Descriptions/Definitions Functional [place] Measure: 0=Not Assessed/NA 4=Minimal Assistance 1=Total Assistance 5=Supervision or Setup 2=Maximal Assistance 6=Modified [place] 3=Moderate Assistance 7=Complete [place] Therapy Quality Codes: 6 Independent with activity with or without an assistive device 5 Patient requires set up or clean up by helper. Patient completes activity by themselves 4 Supervision or touching assist (CGA). [place] provide cues , steadying ass ist 3 The helper provides less than half the effort to complete the activity 2 The helper provides more than half the effort to complete the activity 1 Dependent. The helper does all the effort to complete an activity 7 Patient refused to complete or attempt activity 9 The patient did not perform the activity before the current illness or injury 88 Not attempted due to Medical conditions or safety concerns Toileting (FIM): 6 (Managed clothing and hygiene, tall toilet, grab bar, mod I) Toileting Hygiene (QC): 6 Toilet/Commode Transfer (FIM): 6 (On/off tall toilet, using grab bar) Education OT Patient Education: Progress toward Goal/Update tx plan Teaching Recipient: Patient Teaching Methods: Discussion Response to Teaching: Verbalize Understanding OT Short Term Goals Short Term Goals Time Frame: Feb 18, 2019 Grooming(FIM): 6 Toileting(FIM): 6 Toilet/Commode Transfer(FIM): 6 Additional Short Term Goals: 1-Demonstrate ADL Tasks, 2-Verbalize Understand ing, 3-ImproveStrength/Robert 1=Demonstrate adherence to instructed precautions during ADL tasks. 2=Patient will verbalize/demonstrate understanding of assistive devices/modifications for ADL. 3=Patient will improve strength/tolerance for activity to enable patient to perform ADL's. OT Nursing Home Goals Mine Superintendent Goals Time Frame: Feb 26, 2019 Eating (FIM): 7 (met) Eating (QC): 6 (met) Groomin (met) Oral Hygiene (QC): 6 Bathing(FIM): 6 (not met) Shower/Bathe Self (QC): 6 (not met) Upper Body Dressing(FIM): 6 (not met) Upper Body Dressing (QC): 6 (not met) Lower Body Dressing(FIM): 6 (not met) Lower Body Dressing (QC): 6 (not met) On/Off Footwear (QC): 6 (not met) Toileting(FIM): 6 (met) Toileting Hygiene (QC): 6 (met) Toilet/Commode Transfer(FIM): 6 (met) Toilet/Commode Transfer (QC): 6 (met) Shower Transfer(FIM): 6 (not met) Additional Goals: 1-Demonstrate ADL Tasks, 2-Verbalize Understanding, 3- ImproveStrength/Robert 1=Demonstrate adherence to instructed precautions during ADL tasks. 2=Patient will verbalize/demonstrate understanding of assistive devices/modifications for ADL. 3=Patient will improve strength/tolerance for activity to enable patient to perform ADL's. 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 His recently had back surgery and is unable to provide much assistance with his ca re. Discharge Recommendations Plan/Recommendations: Discharge/Goals Met (see tx plan for goals met) Treatment Plan/Plan of Care Patient would benefit from OT for education, treatment and training to promote independence in ADL's, mobility, safety and/or upper extremity function for ADL's. Plan of Care: ADL Retraining, Functional Mobility, Group Exercise/Act as Ind (education, exercise, activity tolerance, functional activities, socialization, memory), UE Funct Exercise/Act, UE Neuromus Re-Ed/Coord, Visual/Perceptual Retrain (if indicated) Treatment Duration: Feb 26, 2019 Frequency: At least 5 of 7 days/Wk (IRF) Estimated Hrs Per Day: 1.5 hours per day (1.25 to 1.5) Agreement: Yes Rehab Potential: Fair Time/GCodes Start Time: 13:30 Stop Time: 13:40 Total Time Billed (hr/min): 10 Billed Treatment Time visit, 10 minutes ADL TERELL HARRELL OT Feb 12, 2019 14:17
--- NOTE | 2019-02-12 14:20 | Therapy Team Discharge Summary ---
Therapy Discharge Summary Discharge Recommendations Date of Discharge Therapy D/C Recommendations: Home w/ Family Support, Physical Therapy Outpatient Occupational Therapy Pt was seen for skilled OT to increase his independence in basic self care to allow him to safely return home. By discharge, he was able to feed himself groom and toilet mod I, and bathe and dress with setup and SBA. Equipment used included shower bench, grab bars, hand held shower, cane. See tx plan for goals met. DC to home with help from his . DC OT Decreased UE Strength, Dependent Transfers, Impaired Cognition, Impaired Funct Balance, Impaired Self-Care Skills PT Half-Way Goals Director Of Enrollment Goals PT Half-Way Goals Time Frame: Mar 04, 2019 Transfers (B,C,W/C) (FIM): 7 Roll Left to Right (QC): 6 Sit to Lying (QC): 6 Lying-Sitting on Side/Bed(QC): 6 Sit to Stand (QC): 6 Chair/Mth-qq-Xsgil Xfer(QC): 6 Car Transfer (QC): 6 Gait (FIM): 7 Distance: 500' Walk 10 feet (QC): 6 Walk 10ft-Uneven Surface(QC): 6 Walk 50ft with 2 Turns (QC): 6 Walk 150 ft (QC): 6 Gait Level of Assist: 7 Gait Assistive Device: None Stairs (FIM): 5 # of Steps: 12 1 Step (curb) (QC): 4 4 Steps (QC): 4 12 Steps (QC): 4 Stairs Level Of Assist: 5 OT Half-Way Goals Half-Way Goals Time Frame: Feb 26, 2019 Eating (FIM): 7 (met) Eating (QC): 6 (met) Oral Hygiene (QC): 6 Grooming(FIM): 6 (met) Bathing(FIM): 6 (not met) Shower/Bathe Self (QC): 6 (not met) Upper Body Dressing(FIM): 6 (not met) Upper Body Dressing (QC): 6 (not met) Lower Body Dressing(FIM): 6 (not met) Lower Body Dressing (QC): 6 (not met) On/Off Footwear (QC): 6 (not met) Toileting(FIM): 6 (met) Toileting Hygiene (QC): 6 (met) Toilet/Commode Transfer(FIM): 6 (met) Toilet/Commode Transfer (QC): 6 (met) Shower Transfer(FIM): 6 (not met) Additional Goals: 1-Demonstrate ADL Tasks, 2-Verbalize Understanding, 3- ImproveStrength/Robert 1=Demonstrate adherence to instructed precautions during ADL tasks. 2=Patient will verbalize/demonstrate understanding of assistive devices/modifications for ADL. 3=Patient will improve strength/tolerance for activity to enable patient to perform ADL's. Speech Director Of Enrollment Goals Half-Way Goals The patient will improve his cognitive skills for safety and independence in order to return home safely. TERELL HARRELL OT Feb 12, 2019 14:20
--- NOTE | 2019-02-12 14:35 | Speech Therapy Daily Note ---
Speech Daily Progress Note Subjective Date Seen by Provider: Feb 12, 2019 Time Seen by Provider: 00:15 The patient is happy to be returning home today. Objective The patient completed memory tasks related to his safety at home with 80% accuracy given minimal verbal cues. Assessment Assessment Current Status: Fair Progress Treatment Plan Discontinue ST Communication Comprehension: 7 Expression: 6 Social Cognition Social Interaction: 7 Problem Solvin Memory: 5 Speech Short Term Goals Short Term Goals Short Term Goals 1) The patient will complete memory tasks related to his daily needs at 90% or greater given minimal verbal cues. Met at 80% 2) The patient will complete problem solving tasks related to his daily needs at 90% or greater given minimal verbal cues. Met at 80% 3) The patient will complete word finding tasks related to his daily needs at 90% or greater given minimal verbal cues. Net at 80% Speech Industrial Laborer Goals Industrial Laborer Goals The patient will improve his cognitive skills for safety and independence in order to return home safely. Met at 80% Speech-Plan Patient/Family Goals Patient/Family Goals: The patient is discharging to home today with his family. Treatment Plan Speech Therapy Treatment Plan: Discontinue ST The patient wanted to go home. 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 Time Speech Therapy Time In: 13:00 Speech Therapy Time Out: 13:15 Total Billed Time: 15 Billed Treatment Time 1KEILA BETHANIA ST Feb 12, 2019 14:35
--- NOTE | 2019-02-12 14:46 | Therapy Team Discharge Summary ---
Therapy Discharge Summary Discharge Recommendations Date of Discharge Therapy D/C Recommendations: Home w/ Family Support, Physical Therapy Outpatient Occupational Therapy Decreased UE Strength, Dependent Transfers, Impaired Cognition, Impaired Funct Balance, Impaired Self-Care Skills Speech-Language Pathology The patient was admitted yesterday s/p cervical surgery and a new CVA directly after the surgery. The patient was evaluated with the SLUMS which he scored MNCD functional level. The patient decided he wanted to return home today. He is being discharged from ARU as well as ST. PT [facility] Goals Orthopedic Designer Goals PT [facility] Goals Time Frame: Feb 12, 2019 Transfers (B,C,W/C) (FIM): 7 Roll Left to Right (QC): 6 Sit to Lying (QC): 6 Lying-Sitting on Side/Bed(QC): 6 Sit to Stand (QC): 6 Chair/Krn-zm-Oumux Xfer(QC): 6 Car Transfer (QC): 6 Gait (FIM): 7 Distance: 500' Walk 10 feet (QC): 6 Walk 10ft-Uneven Surface(QC): 6 Walk 50ft with 2 Turns (QC): 6 Walk 150 ft (QC): 6 Gait Level of Assist: 7 Gait Assistive Device: None Stairs (FIM): 5 # of Steps: 12 1 Step (curb) (QC): 4 4 Steps (QC): 4 12 Steps (QC): 4 Stairs Level Of Assist: 5 OT Orthopedic Designer Goals [facility] Goals Time Frame: Feb 26, 2019 Eating (FIM): 7 (met) Eating (QC): 6 (met) Oral Hygiene (QC): 6 Grooming(FIM): 6 (met) Bathing(FIM): 6 (not met) Shower/Bathe Self (QC): 6 (not met) Upper Body Dressing(FIM): 6 (not met) Upper Body Dressing (QC): 6 (not met) Lower Body Dressing(FIM): 6 (not met) Lower Body Dressing (QC): 6 (not met) On/Off Footwear (QC): 6 (not met) Toileting(FIM): 6 (met) Toileting Hygiene (QC): 6 (met) Toilet/Commode Transfer(FIM): 6 (met) Toilet/Commode Transfer (QC): 6 (met) Shower Transfer(FIM): 6 (not met) Additional Goals: 1-Demonstrate ADL Tasks, 2-Verbalize Understanding, 3- ImproveStrength/Robert 1=Demonstrate adherence to instructed precautions during ADL tasks. 2=Patient will verbalize/demonstrate understanding of assistive devices/modifications for ADL. 3=Patient will improve strength/tolerance for activity to enable patient to perform ADL's. Speech Orthopedic Designer Goals [facility] Goals The patient will improve his cognitive skills for safety and independence in order to return home safely. Met at 80% MAYANK JIMENEZ Feb 12, 2019 14:46
[2019-02-14] MEDS ORDERED: METHOTREXATE 2.5 MG TAB PO SCH (21:00)
[2019-02-15] MEDS ORDERED: METHOTREXATE 2.5 MG TAB PO SCH (09:00)
== END 2019-02-12 15:00 | disposition home or self-care (01) | DRG 57 ==
PROVIDERS: ADMIT Internal Medicine; ATTEND Internal Medicine
DX: I69.351 Hemiplegia and hemiparesis following cerebral infarction affecting right dominant side (principal); I69.320 Aphasia following cerebral infarction; I69.318 Other symptoms and signs involving cognitive functions following cerebral infarction; I69.818 Other symptoms and signs involving cognitive functions following other cerebrovascular disease; I10 Essential (primary) hypertension; E11.51 Type 2 diabetes mellitus with diabetic peripheral angiopathy without gangrene; E03.9 Hypothyroidism, unspecified; K21.9 Gastro-esophageal reflux disease without esophagitis; G47.33 Obstructive sleep apnea (adult) (pediatric); E78.00 Pure hypercholesterolemia, unspecified; M19.91 Primary osteoarthritis, unspecified site; H91.13 Presbycusis, bilateral; M10.9 Gout, unspecified; E53.8 Deficiency of other specified B group vitamins; F03.90 Unspecified dementia, unspecified severity, without behavioral disturbance, psychotic disturbance, mood disturbance, and anxiety; L40.9 Psoriasis, unspecified; F32.9 Major depressive disorder, single episode, unspecified; Z98.1 Arthrodesis status; Z98.890 Other specified postprocedural states; Z86.718 Personal history of other venous thrombosis and embolism; Z79.01 Long term (current) use of anticoagulants; Z97.4 Presence of external hearing-aid
CPT/HCPCS: 36415; 80053; 82962; 85025; 85610; 94760

== ENCOUNTER → 2021-09-18 | Outpatient (CLI) | payer MEDICARE ==
[~2021-09-18] MED LIST: ACET-2267 PO; ACHD5005 PO; ALLO300T2 PO; ASPI325T32 PO; ATEN50TA PO; CHOL10007 PO; CLOP75TA28 PO; CLOP75TA69 PO; DIPH25TA65 PO; DOCU-143 PO; ENOX100D4 SC; HEPA500016 SC; LEVO25TA5 PO; LIDO1ADH41 TP; LORA10TA7 PO; Lidocaine 4% Patch TOP; MAGN400T29 PO; METF-397 PO; METH-313 PO; METH-732 PO; METH2.5T PO; MULT-567 PO; NF-LT10/20 PO; OXC5T PO; SENN-20 PO; SENN-40 PO; SIMV20TA26 PO; VITA1TAB17 PO; WARF-48 PO
== END ==
LOC: ORTHO 14:45
PROVIDERS: ATTEND Orthopaedic Surgery
DX: Z96.641 Presence of right artificial hip joint (principal)
CPT/HCPCS: 99212

== ENCOUNTER → 2021-09-25 | Outpatient (CLI) | payer MEDICARE ==
--- NOTE | 2021-09-25 18:58 | Diagnostic Imaging Report ---
INDICATION: Postop right hip. TIME OF EXAM: 3:07 PM No prior studies are available for comparison. 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 Longstem femoral component appears to be well centered in the medullary canal. This is surrounded by cerclage wires. The femoral acetabular alignment is normal. There does appear to be an acute fracture line through the greater trochanteric region but alignment is anatomic. There may be some callus formation present consistent with some healing. IMPRESSION: Postoperative changes at the right hip. Fracture involving the greater trochanter is visualized which appears to show some healing. Dictated by: Dictated on workstation # [id number]
== END ==
LOC: ORTHO 14:42
PROVIDERS: ATTEND Orthopaedic Surgery
DX: Z96.641 Presence of right artificial hip joint (principal)
CPT/HCPCS: 73502; G0463; 99212

== ENCOUNTER → 2021-10-30 | Outpatient (CLI) | payer MEDICARE ==
--- NOTE | 2021-10-30 15:39 | Diagnostic Imaging Report ---
INDICATION: Postop right hip. Followup. COMPARISON: 09/25/2021. 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 Distal tip of the femoral component is not entirely included on the frog-leg view but otherwise the femoral component appears to be appropriately positioned. Cerclage wires are noted. Acetabular component is also well-positioned. The two components are also well aligned in respect to one another. No unexpected radiopaque foreign bodies are seen. Nonacute fracture of the proximal femoral shaft is again noted. IMPRESSION: Redemonstration of nonacute fracture of the proximal right femur and post surgical changes of the right hip. Dictated by: Dictated on workstation # [id number]
== END ==
LOC: ORTHO 14:08
PROVIDERS: ATTEND Orthopaedic Surgery
DX: S72.001D Fracture of unspecified part of neck of right femur, subsequent encounter for closed fracture with routine healing (principal); Z96.641 Presence of right artificial hip joint
CPT/HCPCS: 73502; G0463; 99212

== ENCOUNTER → 2021-11-27 | Outpatient (CLI) | payer MEDICARE ==
--- NOTE | 2021-11-27 14:13 | Diagnostic Imaging Report ---
Indication: Postop right hip. Time Of Exam: 1:45 PM Correlation is made with prior radio graph from 10/30/2021. Postop changes right hip arthroplasty are noted. Cerclage wires transfix the obliquely oriented fracture of the proximal shaft of the right femur. Fracture line does remain visible and is similar to examination one month earlier. No new fractures are seen. Alignment is near anatomic. IMPRESSION: Stable right hip since exam one month earlier. Dictated by: Dictated on workstation # [id number]
== END ==
LOC: ORTHO 13:38
PROVIDERS: ATTEND Orthopaedic Surgery
DX: Z09 Encounter for follow-up examination after completed treatment for conditions other than malignant neoplasm (principal)
CPT/HCPCS: 73502; G0463; 99212